=== PATIENT | male | born 1935 ===

== ENCOUNTER 2018-12-19 05:39 | Inpatient (IN) | payer MEDICARE, OTHER ==
[~2018-12-19] VITALS: Ht 172.7 cm; Wt 79.5 kg
[~2018-12-19 05:39] MED LIST: ASPI325 PO; ASPI81CH PO; ASPIRIN PO; CARV3.125 PO; CHOL10002 PO; CLARITIN10 MG PO; CLOP75 PO; COREG PO; FURO20 PO; IPRAOI INH; LATA.005SO BOTHEYES; LISI5 PO; LORA10 PO; METO5A PO; OMEP20ER PO; OMEPRAZOLE MAGN20 MG PO; POTASSIUM GLUCO90 MG PO; PRAV20 PO; TAMS.4ER PO; Vitamin C100 M1 PO
[2018-12-19 05:55] LABS: Calcium, Ionized (POC) 1.06 mmol/L (1.10-1.46); Chloride (POC) 99 mmol/L (98-108); Creatinine (POC) 1.4 mg/dL (0.8-1.3); Glucose (ISTAT POC) 193 mg/dL (70-99); Hemoglobin (POC) 13.3 g/dL (13.5-17.5); Potassium (POC) 4.4 mmol/L (3.5-5.5); Sodium (POC) 139 mmol/L (135-148); Total CO2 (POC) 22 mmol/L (21-32)
[2018-12-19] MEDS ORDERED: LEVO-T50 MCG PO (05:56)
[2018-12-19] MEDS ORDERED: B Complex #11 EACH PO (05:58)
[2018-12-19] MEDS ORDERED: LANOXIN125 MCG PO (05:59)
[2018-12-19] MEDS ORDERED: CALCIUM PO (06:00)
[2018-12-19] MEDS ORDERED: PANCRELIPASE (06:02)
[2018-12-19] MEDS ORDERED: XARELTO15 MG PO (06:02)
[2018-12-19] MEDS ORDERED: ATOR40TA PO (06:03)
[2018-12-19] MEDS ORDERED: POTCHL10ER PO (06:03)
[2018-12-19] MEDS ORDERED: FINA5 PO (06:03)
[2018-12-19] MEDS ORDERED: FURO40 PO (06:04)
[2018-12-19 06:38] LABS: BASOPHILS ABSOLUTE AUTO 0.02 K/mm3 (0.00-0.23); BASOPHILS PERCENT AUTO 0 % (0-2); EOSINOPHILS ABSOLUTE AUTO 0.01 K/mm3 (0.00-0.68); EOSINOPHILS PERCENT AUTO 0 % (0-6); Hematocrit 39.1 % (37.0-53.0); Hemoglobin 12.6 g/dL (13.5-17.5); IMMATURE GRAN ABSOLUTE AUTO 0.15 K/mm3 (0.00-0.10); IMMATURE GRAN PERCENT AUTO 1 % (0-1); LYMPHOCYTES ABSOLUTE AUTO 0.48 K/mm3 (0.84-5.20); LYMPHOCYTES PERCENT AUTO 3 % (21-46); MONOCYTES ABSOLUTE AUTO 0.97 K/mm3 (0.16-1.47); MONOCYTES PERCENT AUTO 6 % (4-13); Mean Corpuscular HGB 29.9 pg (26.0-34.0); Mean Corpuscular HGB Conc 32.2 g/dL (31.5-36.5); Mean Corpuscular Volume 93 fL (80-100); Mean Platelet Volume 12.4 fL (9.1-12.4); NEUTROPHILS ABSOLUTE AUTO 16.01 K/mm3 (1.96-9.15); NEUTROPHILS PERCENT AUTO 91 % (41-73); Platelet Count 169 K/mm3 (150-400); RDW Coefficient Variation 13.5 % (11.7-14.2); RDW Standard Deviation 45.6 fL (35.1-46.3); Red Blood Cell Count 4.22 M/mm3 (4.30-5.90); White Blood Cell Count 17.64 K/mm3 (4.00-11.30)
[2018-12-19 06:57] LABS: Alanine Aminotransfer (ALT/SGP 40 U/L (12-78); Albumin, Blood 2.5 g/dL (3.4-5.0); Albumin/Globulin Ratio 0.7 (0.8-1.8); Alk Phos 225 U/L (50-136); Anion Gap 10 mmol/L (6-16); Aspartate Aminotrans (AST/SGOT 39 U/L (12-37); Bilirubin, Total 1.3 mg/dL (0.1-1.0); Blood Urea Nitrogen 41 mg/dL (8-24); Bun/Creatinine Ratio 29.9 (12.0-20.0); CO2, Blood 24 mmol/L (21-32); Calcium, Blood 7.6 mg/dL (8.5-10.1); Chloride, Blood 105 mmol/L (98-108); Creatinine, Blood 1.37 mg/dL (0.60-1.20); Globulin, Blood 3.5 g/dL (2.2-4.0); Glomerular Filtration Rate 53 (60-); Glucose, Blood 188 mg/dL (70-99); Potassium, Blood 4.5 mmol/L (3.5-5.5); Sodium, Blood 139 mmol/L (136-145); Troponin I <0.015 ng/mL (0.000-0.040)
[2018-12-19 07:05] LABS: Digoxin (Lanoxin) 1.22 ug/mL (0.80-2.00)
--- NOTE | 2018-12-19 12:29 | NUR ---
PATIENT GAVE STUDENT NURSE PERMISSION TO CARE FOR THEM ON 12/20/18.
[2018-12-19 13:48] LABS: Source, Urine Clean Catch
[2018-12-19 14:05] LABS: Bilirubin, Urine Neg (Neg); Blood, Urine Neg (Neg); Glucose Qualitative, Urine Neg (Neg); Ketones, Urine Neg (Neg); Leukocyte Esterase, Urine 1+ (Neg); Nitrite, Urine Neg (Neg); Protein, Urine Neg (Neg); Specific Gravity, Urine 1.015 (1.003-1.022); Urobilinogen, Urine NORM (Normal)
[2018-12-19 14:21] LABS: Appearance, Urine Clear (Clear); Color, Urine Yellow (P-Yellow); Hyaline Casts 0-2 /lpf (0-2)
[2018-12-19 14:22] LABS: Bacteria Few /hpf; Red Blood Cells, Urine 0-2 /hpf (0-2); Squamous Epithelial Cells Few /hpf (Few)
--- NOTE | 2018-12-19 16:03 | NUR ---
PT GAVE THIS STUDENT VERBAL PERMISSION TO ADMINISTER MEDICATIONS ON 12/19/18
--- NOTE | 2018-12-19 16:16 | NUR ---
1030 PT ADMITTED TO MEDICAL FLOOR VIA GURNEY. PT TRANSFERED TO BED WITH SLIDER SHEET AND 3 STAFF. PT ADMITTED WITH SYNCOPE, RECIEVED 500ML BOLUS IN ER, 1L BOLUS INITIATED POST ADMISSION. PT TOLERATED BOLUS WITHOUT ISSUE. URINE AND STOOL SAMPLE SENT TO LAB. PT DENIES PAIN, SOB, N/V. PT WITH GOOD MEAL INTAKE AT LUNCH. SON AT BEDSIDE AT TIME OF ADMISSION AND AT THIS TIME. NO NEW CHANGES AT THIS TIME.
--- NOTE | 2018-12-19 16:20 | NUR ---
SPOKE WITH [facility] NURSE AT [facility], SHE REPORTS THAT PT HAS NO RECORD OF FLU VACCINE THIS YEAR AND REQUESTS THAT FOLLOW APPOINTMENT INFORMATION BE PLACED IN DISHCARGE PAPERWORK. APPOINTMENT INFO INPUTED. FLU VACCINE GIVEN BY STUDENT NURSE.
--- NOTE | 2018-12-19 21:03 | NUR ---
12/19/182054 INFORMED DR MIRANDA OF POSITIVE BLOOD CULTURES PER LAD TECH. STATES HE WILL CHECK CHART AND WRITE ORDERS.
[2018-12-20 04:59] LABS: BASOPHILS ABSOLUTE AUTO 0.02 K/mm3 (0.00-0.23); BASOPHILS PERCENT AUTO 0 % (0-2); EOSINOPHILS ABSOLUTE AUTO 0.12 K/mm3 (0.00-0.68); EOSINOPHILS PERCENT AUTO 1 % (0-6); Hemoglobin 11.6 g/dL (13.5-17.5); IMMATURE GRAN ABSOLUTE AUTO 0.05 K/mm3 (0.00-0.10); IMMATURE GRAN PERCENT AUTO 1 % (0-1); LYMPHOCYTES ABSOLUTE AUTO 1.35 K/mm3 (0.84-5.20); LYMPHOCYTES PERCENT AUTO 14 % (21-46); MONOCYTES ABSOLUTE AUTO 1.11 K/mm3 (0.16-1.47); MONOCYTES PERCENT AUTO 12 % (4-13); Mean Corpuscular HGB 29.4 pg (26.0-34.0); Mean Corpuscular HGB Conc 31.4 g/dL (31.5-36.5); Mean Corpuscular Volume 94 fL (80-100); Mean Platelet Volume 12.9 fL (9.1-12.4); NEUTROPHILS ABSOLUTE AUTO 6.94 K/mm3 (1.96-9.15); NEUTROPHILS PERCENT AUTO 72 % (41-73); Platelet Count 126 K/mm3 (150-400); RDW Coefficient Variation 13.7 % (11.7-14.2); RDW Standard Deviation 46.8 fL (35.1-46.3); Red Blood Cell Count 3.95 M/mm3 (4.30-5.90); White Blood Cell Count 9.59 K/mm3 (4.00-11.30)
[2018-12-20 05:18] LABS: Anion Gap 9 mmol/L (6-16); Blood Urea Nitrogen 25 mg/dL (8-24); Bun/Creatinine Ratio 27.7 (12.0-20.0); CO2, Blood 22 mmol/L (21-32); Calcium, Blood 7.6 mg/dL (8.5-10.1); Chloride, Blood 110 mmol/L (98-108); Glomerular Filtration Rate >60 (60-); Glucose, Blood 84 mg/dL (70-99); Sodium, Blood 141 mmol/L (136-145)
--- NOTE | 2018-12-20 07:34 | NUR ---
12/20/18 0630 AWAKENED FOR AM MEDS. DENIES ANY PAIN. VITALS STABLE.DENIES ANY DIZZINESS OR OTHER S/S. UP TO BEDSIDE FOR QS VOIDINGS.
[2018-12-20 14:00] LABS: Stool Occult Bld Immuno 1 Positive (NEGATIVE)
--- NOTE | 2018-12-20 17:26 | NUR ---
SHIFT SUMMARY PT WORKED WITH PHYSICAL THERAPY AND OCCUPATIONAL THERAPY THIS SHIFT. PT TOOK A SHOWER. NO COMPLAINTS OF DIZZINESS WHILE STANDING AND WALKING. NO COMPLAINTS OF PAIN THIS SHIFT. PT DID HAVE AN EPISODE THIS AM WHEN HEART RATE WAS 150. SCHEDULED DIGOXIN GIVEN AND HR DECREASED. DR. RHODES WAS NOTIFIED OF THIS. PT POSSIBLY DID NOT RECEIVE HIS DIGOXIN THE DAY BEFORE. HR RATE HAS BEEN IN HIGH 90'S LOW 100'S THE REST OF THE SHIFT. NO ACUTE CHANGES THIS SHIFT. CALL LIGHT IN REACH. WILL CONTINUE TO MONITOR AND REPORT TO ONCOMING RN.
--- NOTE | 2018-12-21 05:00 | NUR ---
SHIFT SUMMARY: PT IS ALERT AND ORIENTED. PT IS CALM AND COOPERATIVE WITH CARE. PT CALLS APPROPRIATELY. PT IS A STANDBY ASSIST TO THE BATHROOM. PT'S IV LEAKING, NEW 22 G PUT INTO R. FOREARM, PT TOLERATED WELL. PT DENIES PAIN, NAUSEA, VOMITING, AND SOB. PT SLEPT MUCH OF THE NIGHT WHEN NOT DISTURBED. NO ACUTE CHANGES OR COMPLICATIONS THIS SHIFT. BED IN LOW POSITION, CALL LIGHT WITHIN REACH. WILL REPORT TO DAY NURSE.
[2018-12-21 05:21] LABS: Hematocrit 35.3 % (37.0-53.0); Hemoglobin 11.3 g/dL (13.5-17.5); Mean Corpuscular HGB 29.1 pg (26.0-34.0); Mean Corpuscular Volume 91 fL (80-100); Mean Platelet Volume 12.1 fL (9.1-12.4); Platelet Count 126 K/mm3 (150-400); RDW Coefficient Variation 13.7 % (11.7-14.2); RDW Standard Deviation 45.7 fL (35.1-46.3); Red Blood Cell Count 3.88 M/mm3 (4.30-5.90); White Blood Cell Count 7.27 K/mm3 (4.00-11.30)
[2018-12-21 05:48] LABS: Anion Gap 8 mmol/L (6-16); Blood Urea Nitrogen 18 mg/dL (8-24); Bun/Creatinine Ratio 22.1 (12.0-20.0); CO2, Blood 25 mmol/L (21-32); Calcium, Blood 7.7 mg/dL (8.5-10.1); Chloride, Blood 109 mmol/L (98-108); Creatinine, Blood 0.81 mg/dL (0.60-1.20); Glomerular Filtration Rate >60 (60-); Glucose, Blood 95 mg/dL (70-99); Potassium, Blood 4.1 mmol/L (3.5-5.5); Sodium, Blood 142 mmol/L (136-145)
[2018-12-21 13:40] LABS: Albumin, Blood 2.3 g/dL (3.4-5.0); Albumin/Globulin Ratio 0.7 (0.8-1.8); Bilirubin, Direct 0.2 mg/dL (0.0-0.3); Bilirubin, Indirect 0.2 mg/dL (0.1-0.7); Bilirubin, Total 0.4 mg/dL (0.1-1.0); Globulin, Blood 3.4 g/dL (2.2-4.0); Total Protein, Blood 5.7 g/dL (6.4-8.2)
--- NOTE | 2018-12-21 19:08 | NUR ---
SHIFT SUMMARY PT HAS HAD NO COMPLAINTS THIS SHIFT. PT WORKED WITH PHYSICAL THERAPY TODAY. PT UP TO CHAIR FOR LUNCH. THIS RN ENCOURAGED PT TO GET UP FOR ALL MEALS. CT OF ABDOMEN THIS EVENING AND DR. HRODES IS GOING TO TALK WITH PT. NO ACUTE CHANGES THIS SHIFT. CALL LIGHT IN REACH. WILL CONTINUE TO MONITOR. REPORT GIVEN TO VY DAVID.
--- NOTE | 2018-12-22 05:31 | NUR ---
SHIFT SUMMARY: PT IS ALERT AND ORIENTED. PT IS CALM AND COOPERATIVE WITH CARE. PT CALLS APPROPRIATELY. PT IS A STANDBY ASSIST TO THE BATHROOM. GI CONSULT CALLED TO ANSWERING SERVICE. PT DENIES PAIN, NAUSEA, VOMITING, AND SOB. PT SLEPT MUCH OF THE NIGHT WHEN NOT DISTURBED. NO ACUTE CHANGES OR COMPLICATIONS THIS SHIFT. BED IN LOW POSITION, CALL LIGHT WITHIN REACH. WILL REPORT TO DAY NURSE.
[2018-12-22] MEDS ORDERED: CEFP200 PO (15:25)
--- NOTE | 2018-12-22 15:43 | NUR ---
SUMMARY/DISCHARGE PT DISCHARGED TO HOME, PT AND SPOUSE VERBALIZED UNDERSTANDING OF DISCHARGE INSTRUCTIONS REGARDING MEDICATIONS AND FOLLOW UP APPOINTMENTS, PT ABLE TO BE TAKEN OUT SAFELY VIA WHEELCHAIR
== END 2018-12-22 15:42 | disposition home or self-care (01) | DRG 872 ==
LOC: ER 05:39 → MEDS 05:40 → ENPENDDIS 12-22 15:16 → MEDS 12-22 15:42
PROVIDERS: Emergency Medicine; Internal Medicine Infectious Disease; ADMIT Internal Medicine
DX: A41.51 Sepsis due to Escherichia coli [E. coli] (principal); K83.09 Other cholangitis; N17.9 Acute kidney failure, unspecified; K92.1 Melena; R65.20 Severe sepsis without septic shock; I10 Essential (primary) hypertension; I25.10 Atherosclerotic heart disease of native coronary artery without angina pectoris; I48.2 Chronic atrial fibrillation; Z85.07 Personal history of malignant neoplasm of pancreas; Z23 Encounter for immunization; N40.1 Benign prostatic hyperplasia with lower urinary tract symptoms; Z95.5 Presence of coronary angioplasty implant and graft; I25.2 Old myocardial infarction; J44.9 Chronic obstructive pulmonary disease, unspecified; Z87.891 Personal history of nicotine dependence; Z66 Do not resuscitate; E86.0 Dehydration; I34.0 Nonrheumatic mitral (valve) insufficiency
CPT/HCPCS: 36415; 71046; 74177; 80047; 80048; 80053; 80076; 80162; 81001; 82274; 83605; 84484; 85014; 85025; 85027; 87040; 87077; 87086; 87186; 90686; 93005; 93010; 93306; 96360; 97116; 97161; 97165; 97530; 99285-25; G0008; G0378; J0696; J3480; J7030; J7050; Q9967

== ENCOUNTER 2020-07-12 12:39 | Inpatient (IN) | payer OTHER, MEDICARE ==
[~2020-07-12] VITALS: Ht 172.7 cm; Wt 79.9 kg
[~2020-07-12 12:39] MED LIST changes: +B Complex #11 EACH PO; +CALCIUM PO; +CEFP200 PO; +FINA5 PO; +FURO40 PO; +LANOXIN125 MCG PO; +LEVO-T50 MCG PO; +PANCRELIPASE; +POTCHL10ER PO; +XARELTO15 MG PO
[2020-07-12 13:11] LABS: BASOPHILS ABSOLUTE AUTO 0.04 K/mm3 (0.00-0.23); BASOPHILS PERCENT AUTO 0 % (0-2); EOSINOPHILS ABSOLUTE AUTO 0.06 K/mm3 (0.00-0.68); EOSINOPHILS PERCENT AUTO 0 % (0-6); Hematocrit 41.5 % (37.0-53.0); Hemoglobin 13.3 g/dL (13.5-17.5); IMMATURE GRAN PERCENT AUTO 1 % (0-1); LYMPHOCYTES ABSOLUTE AUTO 2.09 K/mm3 (0.84-5.20); LYMPHOCYTES PERCENT AUTO 10 % (21-46); MONOCYTES PERCENT AUTO 7 % (4-13); Mean Corpuscular HGB 29.8 pg (26.0-34.0); Mean Corpuscular Volume 93 fL (80-100); Mean Platelet Volume 12.7 fL (9.1-12.4); NEUTROPHILS ABSOLUTE AUTO 17.12 K/mm3 (1.96-9.15); NEUTROPHILS PERCENT AUTO 82 % (41-73); Platelet Count 281 K/mm3 (150-400); RDW Standard Deviation 43.8 fL (35.1-46.3); Red Blood Cell Count 4.47 M/mm3 (4.30-5.90); White Blood Cell Count 20.91 K/mm3 (4.00-11.30)
[2020-07-12 13:31] LABS: Alanine Aminotransfer (ALT/SGP 27 U/L (12-78); Albumin, Blood 2.8 g/dL (3.4-5.0); Albumin/Globulin Ratio 0.8 (0.8-1.8); Alk Phos 228 U/L (50-136); Anion Gap 8 mmol/L (6-16); Aspartate Aminotrans (AST/SGOT 24 U/L (12-37); Bilirubin, Total 1.4 mg/dL (0.1-1.0); Blood Urea Nitrogen 18 mg/dL (8-24); Bun/Creatinine Ratio 18.1 (12.0-20.0); CO2, Blood 24 mmol/L (21-32); Calcium, Blood 8.1 mg/dL (8.5-10.1); Chloride, Blood 106 mmol/L (98-108); Creatinine, Blood 0.99 mg/dL (0.60-1.20); Globulin, Blood 3.6 g/dL (2.2-4.0); Glomerular Filtration Rate >60 (60-); Glucose, Blood 192 mg/dL (70-99); Potassium, Blood 4.4 mmol/L (3.5-5.5); Sodium, Blood 138 mmol/L (136-145); Total Protein, Blood 6.4 g/dL (6.4-8.2)
[2020-07-12] MEDS ORDERED: PANT40 PO (13:32)
[2020-07-12] MEDS ORDERED: ERGO400 PO (13:41)
[2020-07-12] MEDS ORDERED: FINA5 PO (13:41)
[2020-07-12] MEDS ORDERED: Loratadine10 MG PO (13:41)
[2020-07-12] MEDS ORDERED: ZENPEP DR 10,01 EACH PO (13:41)
[2020-07-12] MEDS ORDERED: Aspir 8181 MG PO (13:41)
[2020-07-12] MEDS ORDERED: METF500C PO (13:42)
[2020-07-12] MEDS ORDERED: LEVSOD75 PO (13:42)
[2020-07-12] MEDS ORDERED: ELIQUIS5 MG PO (13:42)
[2020-07-12] MEDS ORDERED: ATOR40TA PO (13:42)
[2020-07-12] MEDS ORDERED: FURO20 PO (15:29)
[2020-07-12 15:56] LABS: Source, Urine Catheter
[2020-07-12 15:59] LABS: Bilirubin, Urine Neg (Neg); Blood, Urine Neg (Neg); Glucose Qualitative, Urine Neg (Neg); Ketones, Urine 1+ (Neg); Leukocyte Esterase, Urine Neg (Neg); Nitrite, Urine Neg (Neg); Protein, Urine Neg (Neg); Urobilinogen, Urine 2+ (Normal)
[2020-07-12 16:00] LABS: Appearance, Urine Clear (Clear); Color, Urine Yellow (P-Yellow)
[2020-07-12 17:34] LABS: Influenza A Negative (NEGATIVE); Influenza B Negative (NEGATIVE)
[2020-07-12 22:34] LABS: Adenovirus Not Detected (NOT DETECT); Bordetella pertussis Not Detected (NOT DETECT); Chlamydophila pneumoniae Not Detected (NOT DETECT); Coronavirus 229E Not Detected (NOT DETECT); Coronavirus HKU1 Not Detected (NOT DETECT); Coronavirus NL63 Not Detected (NOT DETECT); Coronavirus OC43 Not Detected (NOT DETECT); Human Metapneumovirus Not Detected (NOT DETECT); Human Rhinovirus/Enterovirus Not Detected (NOT DETECT); Influenza A/2009-H1 Not Detected (NOT DETECT); Influenza A/H1 Not Detected (NOT DETECT); Influenza A/H3 Not Detected (NOT DETECT); Influenza B Not Detected (NOT DETECT); Mycoplasma pneumoniae Not Detected (NOT DETECT); Parainfluenza Virus 1 Not Detected (NOT DETECT); Parainfluenza Virus 2 Not Detected (NOT DETECT); Parainfluenza Virus 3 Not Detected (NOT DETECT); Parainfluenza Virus 4 Not Detected (NOT DETECT); Respiratory Syncytial Virus Not Detected (NOT DETECT)
[2020-07-13 04:22] LABS: BASOPHILS ABSOLUTE AUTO 0.03 K/mm3 (0.00-0.23); BASOPHILS PERCENT AUTO 0 % (0-2); EOSINOPHILS ABSOLUTE AUTO 0.01 K/mm3 (0.00-0.68); EOSINOPHILS PERCENT AUTO 0 % (0-6); Hematocrit 38.1 % (37.0-53.0); Hemoglobin 11.8 g/dL (13.5-17.5); IMMATURE GRAN ABSOLUTE AUTO 0.13 K/mm3 (0.00-0.10); IMMATURE GRAN PERCENT AUTO 1 % (0-1); LYMPHOCYTES ABSOLUTE AUTO 1.67 K/mm3 (0.84-5.20); LYMPHOCYTES PERCENT AUTO 9 % (21-46); MONOCYTES ABSOLUTE AUTO 2.03 K/mm3 (0.16-1.47); MONOCYTES PERCENT AUTO 11 % (4-13); Mean Corpuscular HGB 29.8 pg (26.0-34.0); Mean Corpuscular Volume 96 fL (80-100); Mean Platelet Volume 12.7 fL (9.1-12.4); NEUTROPHILS ABSOLUTE AUTO 14.89 K/mm3 (1.96-9.15); NEUTROPHILS PERCENT AUTO 79 % (41-73); Platelet Count 218 K/mm3 (150-400); RDW Coefficient Variation 13.2 % (11.7-14.2); RDW Standard Deviation 46.5 fL (35.1-46.3); Red Blood Cell Count 3.96 M/mm3 (4.30-5.90); White Blood Cell Count 18.76 K/mm3 (4.00-11.30)
[2020-07-13 04:46] LABS: Alanine Aminotransfer (ALT/SGP 25 U/L (12-78); Albumin, Blood 2.4 g/dL (3.4-5.0); Albumin/Globulin Ratio 0.6 (0.8-1.8); Alk Phos 197 U/L (50-136); Anion Gap 5 mmol/L (6-16); Aspartate Aminotrans (AST/SGOT 16 U/L (12-37); Bilirubin, Total 0.9 mg/dL (0.1-1.0); Blood Urea Nitrogen 17 mg/dL (8-24); Bun/Creatinine Ratio 17.1 (12.0-20.0); CO2, Blood 28 mmol/L (21-32); Calcium, Blood 8.1 mg/dL (8.5-10.1); Chloride, Blood 106 mmol/L (98-108); Creatinine, Blood 0.99 mg/dL (0.60-1.20); Globulin, Blood 3.7 g/dL (2.2-4.0); Glomerular Filtration Rate >60 (60-); Glucose, Blood 124 mg/dL (70-99); Potassium, Blood 4.2 mmol/L (3.5-5.5); Sodium, Blood 139 mmol/L (136-145); Total Protein, Blood 6.1 g/dL (6.4-8.2); Troponin I 0.019 ng/mL (0.000-0.040)
--- NOTE | 2020-07-13 10:23 | NUR ---
ASSUMED CARE; PT MORE ALERT THIS AM, ABLE TO STATE FULL NAME AND KNOWS WHERE HE'S AT, WAS ACTUALLY ASKING FOR BREAKFAST THIS MORNING AND THAT HE WAS HUNGRY, ALSO STATED HE COULDNT REMEMBER WHAT HAPPENED YESTERDAY AND HOW HE GOT HERE. PT'S DIET RESUMED NO ISSUES WITH SWALLOWING. PT ALSO ACCIDENTALLY PULLED IV LINE OUT UPON TURNING IN BED. VITALS HRR AFIB WAS AT 120'S-170'S THIS AM AVERAGING AT 130 PER JIRA DEVELOPER, CALLED DR WHEELER AND MADE AWARE ORDER RECEIVED FOR METOPROLOL 25MG Q8HRS FIRST DOSE WAS GIVEN AT 0900 RATE IS NOW AT 80-90'S. BP SYSTOLIC 130'S, SATS ABOVE 95% ON 2L OF O2, AFEBRILE. PT IS CURRENTLY EATING BREAKFAST ICU NURSE IN THE ROOM TO RESTART AN IV. WILL MONITOR
--- NOTE | 2020-07-13 18:48 | NUR ---
PT SUMMARY: PT REMAINED ALERT AT BASELINE THROUGHOUT THE SHIFT, VITALS HRR STILL AFIB 90'S-130'S ON PO METOPROLOL, SATS ABOVE 98% ON RROMAIR, AFEBRILE. PT WAS BLADDER SCANNED UNABLE TO VOID FOR THE SHIFT, OBTAINED 597MLS FROM BLADDER SCAN, STRAIGHT CATH PER ORDER [address] OUT. ATT[address] IN PLACE. CONTINUES ON IV ABO, COVID PENDING. GOOD APPETTITE. CALL LIGHTS IN REACH WILL REPORT TO ONCOMING SHIFT
[2020-07-14 04:24] LABS: BASOPHILS ABSOLUTE AUTO 0.02 K/mm3 (0.00-0.23); BASOPHILS PERCENT AUTO 0 % (0-2); EOSINOPHILS ABSOLUTE AUTO 0.02 K/mm3 (0.00-0.68); EOSINOPHILS PERCENT AUTO 0 % (0-6); Hematocrit 36.6 % (37.0-53.0); Hemoglobin 11.6 g/dL (13.5-17.5); IMMATURE GRAN PERCENT AUTO 1 % (0-1); LYMPHOCYTES ABSOLUTE AUTO 1.98 K/mm3 (0.84-5.20); LYMPHOCYTES PERCENT AUTO 14 % (21-46); MONOCYTES ABSOLUTE AUTO 1.95 K/mm3 (0.16-1.47); MONOCYTES PERCENT AUTO 14 % (4-13); Mean Corpuscular HGB 30.2 pg (26.0-34.0); Mean Corpuscular HGB Conc 31.7 g/dL (31.5-36.5); Mean Corpuscular Volume 95 fL (80-100); NEUTROPHILS ABSOLUTE AUTO 10.28 K/mm3 (1.96-9.15); NEUTROPHILS PERCENT AUTO 72 % (41-73); Platelet Count 214 K/mm3 (150-400); RDW Coefficient Variation 13.2 % (11.7-14.2); RDW Standard Deviation 45.8 fL (35.1-46.3); Red Blood Cell Count 3.84 M/mm3 (4.30-5.90); White Blood Cell Count 14.35 K/mm3 (4.00-11.30)
[2020-07-14 04:40] LABS: Anion Gap 5 mmol/L (6-16); Blood Urea Nitrogen 22 mg/dL (8-24); Bun/Creatinine Ratio 25.8 (12.0-20.0); CO2, Blood 27 mmol/L (21-32); Calcium, Blood 8.3 mg/dL (8.5-10.1); Chloride, Blood 104 mmol/L (98-108); Creatinine, Blood 0.85 mg/dL (0.60-1.20); Glomerular Filtration Rate >60 (60-); Glucose, Blood 130 mg/dL (70-99); Potassium, Blood 4.5 mmol/L (3.5-5.5); Sodium, Blood 136 mmol/L (136-145)
--- NOTE | 2020-07-14 05:17 | NUR ---
PATIENT RESTING IN BED. HE IS CONFUSED TO SITUATION AND DATE. DURING THE NIGHT HE IS MORE CONFUSED TO SITUATION, ATTEMPTING TO GET UP. PATIENT STATES "I NEED TO GO EMPTY MY SHOTGUN." HE ATTEMPTS TO CLIMB OUT OF BED. BED ALARM ON, EDUCATED ON THE USE OF CALL LIGHT FOR ASSISTANCE, UNABLE TO DEMONSTRATE UNDERSTANDING. PATIENT STRAIGHT CATHED AT 0400. 525 ML OUT. VSS, WILL CONTINUE TO MONITOR UNTIL END OF SHIFT
--- NOTE | 2020-07-14 09:36 | NUR ---
ASSUME CARE: PT ALERT AT BASELINE. VITALS HRR AFIB STABLE ON THE 90'S, DENIES CHEST PAIN, ON ROOMAIR SATING ABOVE 95%, AFEBRILE. CONTINUES ON IV ABO, COVID PENDING. NO OTHER ISSUES/ACUTE CHANGE, WILL MONITOR
--- NOTE | 2020-07-14 14:57 | NUR ---
PT HAD UNWITNESSED FALL @1340. THIS CN CHECKED ON PT ON THE DOOR FOR BLADDER SCAN PROCEDURE PT WAS ALREADY STANDIGN UP ON THE SIDE OF THE BED, PT WAS TOLD TO WAIT FOR HELP AND SIT BACK IN BED, WHILE THIS RN AND HEARING DOG TRAINER WEARING PPE'S SINCE PT IS IN ISO ROOM A BANG NOISE HEARD FROM PT'S BATHROOM, PT WAS FOUND ON THE BATHROOM FLOOR SITTING WITH NO BRIEF ON AND STOOLS ON THE FLOOR. PT STATED HE LOST BALANCE FELL ON HIS KNEES HIT HIS FOREHEAD ON THE BATHROOM WALL. NO HEMATOMA/BUMPS OR BRUISING NOTED ON THE HEAD, NEURO CHECKS DONE WNL. PT WAS ASSISTED BACK TO THE TOILET VIA GAIT BELT AND WALKER 2 PA, EVENTUALLY ASSISTED BACK TO BED, VITALS STABLE. DR WHEELER MADE AWARE TO MONITOR PT NUERO CHECKS IF THERE'S ANY CHANGES CALL PROVIDER FOR HEAD CT. SIGNIFICANT OTHER LILO MADE AWARE WELL. WILL MONITOR
--- NOTE | 2020-07-14 15:14 | NUR ---
ECHOCARDIOGRAM COMPLETE
[2020-07-15 03:50] LABS: BASOPHILS ABSOLUTE AUTO 0.04 K/mm3 (0.00-0.23); BASOPHILS PERCENT AUTO 0 % (0-2); EOSINOPHILS ABSOLUTE AUTO 0.04 K/mm3 (0.00-0.68); EOSINOPHILS PERCENT AUTO 0 % (0-6); Hematocrit 37.7 % (37.0-53.0); IMMATURE GRAN ABSOLUTE AUTO 0.13 K/mm3 (0.00-0.10); IMMATURE GRAN PERCENT AUTO 1 % (0-1); LYMPHOCYTES ABSOLUTE AUTO 2.22 K/mm3 (0.84-5.20); LYMPHOCYTES PERCENT AUTO 17 % (21-46); MONOCYTES PERCENT AUTO 15 % (4-13); Mean Corpuscular HGB 30.2 pg (26.0-34.0); Mean Corpuscular HGB Conc 31.8 g/dL (31.5-36.5); Mean Corpuscular Volume 95 fL (80-100); Mean Platelet Volume 12.6 fL (9.1-12.4); NEUTROPHILS ABSOLUTE AUTO 8.45 K/mm3 (1.96-9.15); NEUTROPHILS PERCENT AUTO 66 % (41-73); Platelet Count 233 K/mm3 (150-400); RDW Coefficient Variation 13.2 % (11.7-14.2); RDW Standard Deviation 45.8 fL (35.1-46.3); Red Blood Cell Count 3.97 M/mm3 (4.30-5.90); White Blood Cell Count 12.78 K/mm3 (4.00-11.30)
--- NOTE | 2020-07-15 05:42 | NUR ---
SHIFT SUMMARY PT REMAINED IN DROPLET ISOLATION, COVID TEST STILL PENDING. PT ALERT AND ORIENTED TO SELF, SURROUNDINGS AND TIME AT BEGINNING OF SHIFT. PT BEGAN TO HALLUCINATE AND BELIEVED TO HAVE SEEN "SPIDERS" ON THE [place]. PT ALSO WAS UNAWARE OF CURRENT LOCATION AT 0300. PT O2 SAT ABOVE 95% WHILE ON RA. VS STABLE. PT REPORTS NO CP OR PRESSURE. AT 2230 PT WAS BLADDER SCANNED AND HAD 308 ML OF URINE IN BLADDER. AT 0330 PT VOIDED 25 ML OF URINE. BLADDER SCAN WAS DONE, 411 ML OF URINE IN BLADDER. WILL CONTINUE TO MONITOR UNTIL SHIFT REPORT GIVEN TO DAY SHIFT RN.
--- NOTE | 2020-07-15 06:30 | NUR ---
STRAIGHT CATHETER INSERTED STRAIGHT CATHETER INSERTED D/T PROTOCOL. BLADDER SCANNER REVEALED 475 ML OF URINE. STRAIGHT CATHETER PROCEDURE PERFORMED. STERILE TECHNIQUE MAINTAINED. 525 ML OF URINE REMOVED. PT TOLERATED WELL.
--- NOTE | 2020-07-15 18:47 | NUR ---
PCU DAYSHIFT SUMMARY PATIENT ALERT TO SELF - CONFUSED TO LOCATION AND SITUATION. PATIENT SLEEPING T/O SHIFT. ENCOURAGED UP TO CHAIR X2 THIS SHIFT - TOLERATED PASSIVELY. RESP E/U ON ROOM AIR. PATIENT VOIDED 600ML APPROX THIS SHIFT POST BLADDER SCAN AT 1400 APPROX - NO OTHER URINE NOTED. HEART RATE REMAINS AFIB IRREGULAR WITH CONTROLLED RATE - PATIENT NOW MEDICAL STATUS NO TELE. PT/OT WORKED WITH PATIENT. LEFT KNEE NOTED TO BE SWOLLEN AND RED - XRAY OBTAINED OF KNEE THIS SHIFT. NO FEVER OR CHEST PAIN NOTED THIS SHIFT. PATIENT REMAINED ON ROOM AIR. VSS. NO ACUTE CHANGES NOTED. WILL CONTINUE TO MONITOR AND REPORT TO NOC SHIFT RN. BED ALARM DATA ENTRY OPERATOR LIGHT W/I REACH - PLAN FOR HOME WITH HOME HEALTH OR HOSPICE WITH SIGNIFICANT OTHER LILO.
[2020-07-16 04:06] LABS: BASOPHILS ABSOLUTE AUTO 0.02 K/mm3 (0.00-0.23); BASOPHILS PERCENT AUTO 0 % (0-2); EOSINOPHILS ABSOLUTE AUTO 0.06 K/mm3 (0.00-0.68); EOSINOPHILS PERCENT AUTO 1 % (0-6); Hematocrit 34.6 % (37.0-53.0); Hemoglobin 11.1 g/dL (13.5-17.5); IMMATURE GRAN ABSOLUTE AUTO 0.13 K/mm3 (0.00-0.10); IMMATURE GRAN PERCENT AUTO 1 % (0-1); LYMPHOCYTES ABSOLUTE AUTO 2.13 K/mm3 (0.84-5.20); LYMPHOCYTES PERCENT AUTO 18 % (21-46); MONOCYTES ABSOLUTE AUTO 2.27 K/mm3 (0.16-1.47); MONOCYTES PERCENT AUTO 19 % (4-13); Mean Corpuscular HGB 29.8 pg (26.0-34.0); Mean Corpuscular HGB Conc 32.1 g/dL (31.5-36.5); Mean Corpuscular Volume 93 fL (80-100); Mean Platelet Volume 12.8 fL (9.1-12.4); NEUTROPHILS ABSOLUTE AUTO 7.27 K/mm3 (1.96-9.15); NEUTROPHILS PERCENT AUTO 61 % (41-73); Platelet Count 206 K/mm3 (150-400); RDW Coefficient Variation 13.2 % (11.7-14.2); RDW Standard Deviation 44.5 fL (35.1-46.3); Red Blood Cell Count 3.73 M/mm3 (4.30-5.90); White Blood Cell Count 11.88 K/mm3 (4.00-11.30)
[2020-07-16 04:32] LABS: Anion Gap 4 mmol/L (6-16); Blood Urea Nitrogen 18 mg/dL (8-24); Bun/Creatinine Ratio 20.9 (12.0-20.0); CO2, Blood 29 mmol/L (21-32); Calcium, Blood 8.1 mg/dL (8.5-10.1); Chloride, Blood 100 mmol/L (98-108); Creatinine, Blood 0.86 mg/dL (0.60-1.20); Glomerular Filtration Rate >60 (60-); Glucose, Blood 118 mg/dL (70-99); Sodium, Blood 133 mmol/L (136-145)
--- NOTE | 2020-07-16 05:44 | NUR ---
SHIFT SUMMARY PT A& X2; VSS; DENIES CHEST PAIN; CURRENTLY MED STATUS NO TELE; O2 SATS >93 ON RA; DENIES SOB; PT ENCOURAGED TO USE URINAL T/O SHIFT; BLADDER SCAN PERFORMED W/ 280ML NOTED; PO FLUIDS ENCOURAGED; PT EDUCATED ON FALL PREVENTION; SKID FREE SOCKS IN PLACE; BATHROOM LIGHT ON; BED ALARM ON; CONTINUE AWAITING RESULTS FOR SEND OUT COVID R/O; PT SLEPT SEVERAL HOURS IN BETWEEN INTERVENTIONS; CALL LIGHT IN REACH; BED IN LOWEST POSITION; WILL CONTINUE TO MONITOR CLOSELY UNTIL HAND OFF TO DAY SHIFT RN.
--- NOTE | 2020-07-16 10:16 | NUR ---
ASSUMED CARE OF PT AT 0700, REPORT FROM FRANKIE REAL. PT RESTING IN BED, SUPINE IN SEMI-BROWN'S, RESPIRATIONS EVEN AND UNLABORED ON ROOM AIR.
--- NOTE | 2020-07-16 15:50 | NUR ---
Spiritaul care visit conducted. Patient is lying in bed and alert. 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 Patient shares about his spiritual journey ([employer] to [facility] [employer] Mandaeism) and about his struggles to forgive. I listen empathically, hear confession, reinforce helpful attitudes and practices and provide pastoral clinical counselor and prayer. Patient responds well and shows signs of catharsis and increased peace. I will continue to remain available to patient and family.
--- NOTE | 2020-07-16 18:44 | NUR ---
SHIFT SUMMARY: PT SLEEPS THROUGHOUT SHIFT BUT AROUSES EASILY TO GIRLFRIEND VISITING AND TO STAFF ENTERING ROOM. PT HAS BEEN A/O X3, SATS ON ROOM AIR, HAS BEEN AFEBRILE. COVID TEST IS NEGATIVE, ISOLATION DC'D. PT CONTINUES MED STATUS WITH NO TELEMETRY. PT WAS ABLE TO SELF CATH FOR URINE AT 1015 TODAY AND AGAIN AT 1845. PT WAS VISITED BY SPIRITUAL CARE AND PHYSICAL THERAPY, WAS ABLE TO SIT AT BEDSIDE, NO AMBULATION.
--- NOTE | 2020-07-16 20:50 | NUR ---
ASSUMED CARE OF PATIENT AT [facility] 1904 FROM JOSE Yung RN AND NEL Andersen RN. PATIENT ALERT AND ORIENTED TO SELF, AND DATE; REPORTS HE MEMORIZED THE DATE TODAY. PATIENT DENIES PAIN, NUMBNESS, TINGLING, DIZZINESS OR NAUSEA. MEDICAL NO TELE; OXYGEN SATURATION ABOVE 90% ON ROOM AIR. PIV S/L. PATIENT MAX ASSISTANCE OUT OF BED; FALL RISK; TURNS SELF IN BED. Q8H BLADDER SCANS; SELF CATHS W/ ASSISTANCE. PATIENT CURRENTLY RESTING IN BED; CALL LIGHT IN REACH; BED IN LOWEST POSISTION; BED ALARM ON; WILL CONTINUE TO MONITOR AND ASSESS UNTIL END OF SHIFT.
[2020-07-17 03:59] LABS: BASOPHILS ABSOLUTE AUTO 0.04 K/mm3 (0.00-0.23); BASOPHILS PERCENT AUTO 0 % (0-2); EOSINOPHILS ABSOLUTE AUTO 0.07 K/mm3 (0.00-0.68); EOSINOPHILS PERCENT AUTO 1 % (0-6); Hematocrit 35.7 % (37.0-53.0); Hemoglobin 11.4 g/dL (13.5-17.5); IMMATURE GRAN ABSOLUTE AUTO 0.15 K/mm3 (0.00-0.10); IMMATURE GRAN PERCENT AUTO 1 % (0-1); LYMPHOCYTES ABSOLUTE AUTO 2.08 K/mm3 (0.84-5.20); LYMPHOCYTES PERCENT AUTO 19 % (21-46); MONOCYTES ABSOLUTE AUTO 2.08 K/mm3 (0.16-1.47); MONOCYTES PERCENT AUTO 19 % (4-13); Mean Corpuscular HGB 29.8 pg (26.0-34.0); Mean Corpuscular HGB Conc 31.9 g/dL (31.5-36.5); Mean Corpuscular Volume 93 fL (80-100); Mean Platelet Volume 12.6 fL (9.1-12.4); NEUTROPHILS ABSOLUTE AUTO 6.61 K/mm3 (1.96-9.15); NEUTROPHILS PERCENT AUTO 60 % (41-73); Platelet Count 209 K/mm3 (150-400); RDW Coefficient Variation 13.3 % (11.7-14.2); RDW Standard Deviation 44.5 fL (35.1-46.3); Red Blood Cell Count 3.83 M/mm3 (4.30-5.90); White Blood Cell Count 11.03 K/mm3 (4.00-11.30)
[2020-07-17 04:23] LABS: Albumin, Blood 2.2 g/dL (3.4-5.0); Anion Gap 5 mmol/L (6-16); Blood Urea Nitrogen 17 mg/dL (8-24); Bun/Creatinine Ratio 19.1 (12.0-20.0); CO2, Blood 29 mmol/L (21-32); Calcium, Blood 8.2 mg/dL (8.5-10.1); Chloride, Blood 98 mmol/L (98-108); Creatinine, Blood 0.89 mg/dL (0.60-1.20); Glomerular Filtration Rate >60 (60-); Glucose, Blood 123 mg/dL (70-99); Phosphorus, Blood 3.9 mg/dL (2.5-4.9); Potassium, Blood 4.3 mmol/L (3.5-5.5); Sodium, Blood 132 mmol/L (136-145)
--- NOTE | 2020-07-17 06:15 | NUR ---
NO ACUTE CHANGES TO REPORT. VSS. BEDBATH GIVEN. PATIENT MEDICATED FOR PAIN IN LEFT KNEE. PATIENT SLEPT ABOUT EIGHT HOURS LAST NIGHT. WILL CONTINUE TO MONITOR AND ASSESS UNTIL END OF SHIFT.
--- NOTE | 2020-07-17 08:27 | NUR ---
ASSUMED CARE OF PT AT SHIFT CHANGE, RECEIVED REPORT FROM FRANKIE RUTHERFORD. PT RESTING QUIETLY IN ROOM, SITTING UP AND EATING BREAKFAST AT THIS TIME.
--- NOTE | 2020-07-17 17:00 | NUR ---
PT RECEIVES ROOM IN MEDICAL DEPT. REPORT GIVEN TO FRANKIE ESPINLA TO RECEIVE PT.
--- NOTE | 2020-07-17 17:59 | NUR ---
TRANSFER FROM U 6 TO [facility] 310 @ [phone]. PT ARRIVE TO ACCOMPANIED BY S/O. THEY STATE HAVE DECIDED TOO HAVE CHAVEZ RECOMMENDED BY DR BUITRAGO(ID). DR RHODES NOTIFIED, ORDER CARDIAC CONSULT, CALLED TO CARDIOLOGY ANS SERV. PT IS A/O X2-3, MI'KMAQ. STATE SORENESS L KNEE OTHERWISE COMFORTABLE. LIDODERM PATCH APPLIED TO KNEE, SITE IS SOMEWHAT SWOLLEN HOWEVER NO REDNESS. HR IRREG w MURMUR, HX AFIB, SCHEDULED XARELTO GIVEN. SITTING UP IN BED FOR DINNER, WATCHING TV, INTERACTING w S/O. ORIENTED TO , CALL SYSTEM & FALL PRECAUTIONS, HE VERBALIZE UNDERSTANDING.
--- NOTE | 2020-07-18 05:22 | NUR ---
SHIFT SUMMARY PT HAS AHD NO ACUTE CHANGES SINCE ASSUMING CARE, NO C/O ANY KIND, PLEASANTLY CONFUSED T/O SHIFT- NEEDED REPEATED REORIENTATION T/O NIGHT, STRAIGHT CATH NEEDED X1 FOR PVR OF 574MLS, PT BEDRESTING AT THIS TIME, CALL LIGHT IN REACH, BED ALARM ACTIVE, WILL CONT TO MONITOR UNTIL REPORT GIVEN TO DAY RN.
--- NOTE | 2020-07-18 15:51 | NUR ---
met with cardilogist, hospitaist and michael and his SO this morning. We reviewed The risk and benefit of the CHAVEZ. pt was able to track most of the conversation but with great difficulty and retaining it was hard. Cardiology left it for him to discuss with family. We reviewed it carefully and pt decicide thr risk was worth the benefit. We had an extenisve conversation on future care, prognosis and levels of care. we completed a polst for DNR limited treatments. 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 pt was very fatigued by the end of the conversation. Reviewed our interaction with his daughter pj and offered her follow up information. They are considering transition to hospice in the future based on his memory and decreasing cardiac function. They are open to in home treament with antibiotic they think it may enhance his quality of life. processed polst to medical records and original given to family with instrctions. will fax copy to [place] medical records.
--- NOTE | 2020-07-18 17:35 | NUR ---
SUMMARY PT IS A/O X2, FORGETFUL, PLEASANT AFFECT. HE STATE MILD DISCOMFORT L KNEE, NO REDNESS, SWELLING IS DECREASING, TYLENOL & LIDODERM PTCH FOR PAIN CONTROL/RELIEF. HE HAS BEEN OOB w PT/OT TODAY FOR EVAL/TX, UP IN CHAIR. DR HERNANDEZ IN TO SEE HIM THIS AM TO EXPLAIN CHAVEZ PROCEDURE. PT & S/O REQUIRE MORE TIME TO CONSIDER HOWEVER LATER IN MORNING DECIDE TO HAVE PROCEDURE, SIGN CONSENT W PALLIATIVE CARE RN. DR RHODES, DR HERNANDEZ NOTIFIED. PT WAS NPO @ LUNCH FOR PROCEDURE HOWEVER [facility] CALL, STATE DR HERNANDEZ CANCEL UMTIL AM D/T BUSY SCHEDULE. PT WILL BE NPO AFTER MIDNITE. S/O NOTIFIED. VSS.
--- NOTE | 2020-07-19 04:24 | NUR ---
night clerk auditor summary pt is a/o x1 to self. very confused tonight and needing frequent re-orientation. pt had some visual hallucinations talking about a "merry go around", "misquito and larva" on the ceiling". denies pain, nausea, dizziniess. tried to get out of bed a few times tonight. bed alarm in place all night. bed in lowest position. vss. bladder scan of 516ml around 0100. straight cathed with 625ml output at 0300.
--- NOTE | 2020-07-19 07:52 | NUR ---
PATIENT OFF UNIT FOR CHAVEZ. ELENI LILO NOTIFIED BY PHONE PER HER REQUEST.
--- NOTE | 2020-07-19 18:31 | NUR ---
SHIFT SUMMARY: NO ACUTE EVENTS THIS SHIFT. ALERT TO SELF AND FAMILY ONLY. DENIED PAIN. BLADDER SCANNED AND STRAIGHT CATH X 2 THIS SHIFT FOR RETENTION, TOLERATED WELL. CHAVEZ COMPLETE. TOLERATING DIET. GETTING UP TO CHAIR WITH ASSISTANCE FOR MEALS. HAD VISITS FROM GF AND GRANDDAUGHTER.
--- NOTE | 2020-07-20 02:08 | NUR ---
07/20/20 0145 BLADDER SCAN = 388 ML OF URINE. PT NOT UNCOMFORTABLE. TAKING SNACK.
--- NOTE | 2020-07-20 07:47 | NUR ---
07/20/20 0615 PT PLEASANTLY CONFUSED. EASILY RE-DIRECTABLE AND RE-ORIENTED TO SURROUNDINGS. BED ALARM ON. BLADDER SCAN DONE AT 0145 = 388 ML. DENIES ANY S/S OR DISCOMFORT. VITALS STABLE.
--- NOTE | 2020-07-20 18:32 | NUR ---
SHIFT SUMMARY: NO ACUTE EVENTS THIS SHIFT. A&O X 1-2, IS LUCID AT TIMES. VOIDED USING URINAL X 2, STRAIGHT CATH X 1 FOR 520 ML. PICC LINE PLACED IN L ARM FOR ORTHOTIST IV ABX. DENIED PAIN. TOOK A SHOWER PRIOR TO PICC INSERTION. GOOD APPETITE. POSSIBLE D/C HOME WITH IV ABX TOMORROW.
--- NOTE | 2020-07-20 23:17 | NUR ---
07/21/20 2300 BLADDER SCAN AT 10 PM = 654 ML. PT VOIDED 220ML AT 2245. ST CATH DONE AND 650 ML DRAINED. PT WATCHING TV. BED ALARM ON. PLEASANTLY CONFUSED.
[2020-07-21 05:31] LABS: Hemoglobin 11.5 g/dL (13.5-17.5); Mean Corpuscular HGB Conc 31.9 g/dL (31.5-36.5); Mean Corpuscular Volume 94 fL (80-100); Mean Platelet Volume 12.1 fL (9.1-12.4); Platelet Count 256 K/mm3 (150-400); RDW Coefficient Variation 13.6 % (11.7-14.2); RDW Standard Deviation 46.2 fL (35.1-46.3); Red Blood Cell Count 3.83 M/mm3 (4.30-5.90); White Blood Cell Count 9.05 K/mm3 (4.00-11.30)
[2020-07-21 05:53] LABS: Albumin, Blood 2.3 g/dL (3.4-5.0); Anion Gap 5 mmol/L (6-16); Blood Urea Nitrogen 20 mg/dL (8-24); Bun/Creatinine Ratio 21.5 (12.0-20.0); CO2, Blood 27 mmol/L (21-32); Calcium, Blood 8.2 mg/dL (8.5-10.1); Chloride, Blood 106 mmol/L (98-108); Creatinine, Blood 0.93 mg/dL (0.60-1.20); Glomerular Filtration Rate >60 (60-); Glucose, Blood 123 mg/dL (70-99); Phosphorus, Blood 3.7 mg/dL (2.5-4.9); Potassium, Blood 4.5 mmol/L (3.5-5.5); Sodium, Blood 138 mmol/L (136-145)
--- NOTE | 2020-07-21 07:40 | NUR ---
07/21/20 0620 BLADDER SCAN THIS AM WAS 589 ML. PT VOIDED 150 ML JUST [address]IOR TO ST.CATH. ST CATHED 600 ML CLEAR YELLOW URINE. PT VERY IMPULSIVE AND CONFUSED TO SURROUNDINGS. FORGETS TO USE CALL SYSTEM EVEN WHEN REMINDED FREQUENTLY. BED ALARM ON. DENIES ANY DISCOMFORT.
[2020-07-21] MEDS ORDERED: CEFTRIAXON2 GM/50 M1 IV (10:22)
[2020-07-21] MEDS ORDERED: LIDOCAINE1 EAC1 TOP (10:25)
[2020-07-21] MEDS ORDERED: METO50 PO (10:27)
[2020-07-21] MEDS ORDERED: VISBIOME PROBIOTIC PO (10:28)
[2020-07-21] MEDS ORDERED: SENN187 PO (10:28)
--- NOTE | 2020-07-21 16:08 | NUR ---
SHIFT SUMMARY NO ACUTE CHANGES TODAY. PT STILL HAVING TO BE STRAIGHT CATHED R/T URINARY RETENTION. FAMILY AT BEDSIDE AND SUPPORTIVE. PLAN IS FOR PT TO BE DISCHARGED HOME WITH HOME HEALTH TOMORROW LONG IV ABX ARE IN PLACE. CARE MANAGEMENT WORKING ON DISCHARGE. PICC LINE TO JOSESITO WNJovani. CALL LIGHT WITHIN REACH. BED ALARM IN PLACE FOR SAFETY PT IS PLEASANTLY CONFUSED.
--- NOTE | 2020-07-21 19:17 | NUR ---
Initial spiritual care note: Advanced directive completed with Mr. Morejon's SOCierra and dtrDominga. All were in agreement. Document notarized and several copies made. Mr. Morejon appears frail, but made little jokes and smiles easily. He is clearly well loved. Provided affirmation and prayer. I will remain available.
--- NOTE | 2020-07-21 23:42 | NUR ---
07/21/20 2220 BLADDER SCAN = 483 ML.
--- NOTE | 2020-07-21 23:43 | NUR ---
07/21/[address] CATHED= 525 ML CLEAR YELLOW URINE. PLEASANTLY CONFUSED TO SURROUNDINGS. BED ALARM ON. CALL PRO WITHIN REACH AND REMINDED IN HOW TO USE.
--- NOTE | 2020-07-22 07:33 | NUR ---
07/22/[address] CATHED 850ML BY ADAM BARAJAS RN. HE HAD VOIDED 150 PRIOR.
--- NOTE | 2020-07-22 18:37 | NUR ---
DISCHARGE PT AND GIRLFRIEND VERBALIZED UNDERSTANDING OF THE DISCHARGE PAPERWORK. THIS RN DEMONSTRATION IV ANTIBIOTIC ADMINISTRATION, PER GIRLFRIEND REQUEST, AND ALL OF HER QUESTIONS WERE ANSWERED. HH TO FOLLOWUP TOMORROW, GIRLFRIEND AWARE. SOPHIA PACHECOAY TO GIVE EARLY, PER PHARMACY, AND MD. TODAYS DOSE GIVEN AND PT DISCHARGING AT THIS TIME, IN GIRLFRIEND'S VEHICLE. ALL PERSONAL BELONGINGS IN THEIR POSSESSION. PICC LINE IN PLACE.
== END 2020-07-22 18:44 | disposition home health service (06) | DRG 871 ==
LOC: ER 12:39 → PCU 19:29 → MEDS 19:29 → PCU 19:32 → MEDS 07-17 17:25 → ENPENDDIS 07-21 09:04 → MEDS 07-22 18:44
PROVIDERS: Internal Medicine; Student in an Organized Health Care Education/Training Program; ADMIT Internal Medicine
PROC: B246ZZ4 Ultrasonography of Right and Left Heart, Transesophageal (ICD-10-PCS; principal; 2020-07-19)
PROC: 02HV33Z Insertion of Infusion Device into Superior Vena Cava, Percutaneous Approach (ICD-10-PCS; 2020-07-20)
DX: A40.9 Streptococcal sepsis, unspecified (principal); J96.01 Acute respiratory failure with hypoxia; G93.41 Metabolic encephalopathy; I33.0 Acute and subacute infective endocarditis; I25.2 Old myocardial infarction; R65.20 Severe sepsis without septic shock; Z79.82 Long term (current) use of aspirin; J44.9 Chronic obstructive pulmonary disease, unspecified; I10 Essential (primary) hypertension; Z95.5 Presence of coronary angioplasty implant and graft; I25.10 Atherosclerotic heart disease of native coronary artery without angina pectoris; I77.9 Disorder of arteries and arterioles, unspecified; Z86.73 Personal history of transient ischemic attack (TIA), and cerebral infarction without residual deficits; Z87.891 Personal history of nicotine dependence; E11.9 Type 2 diabetes mellitus without complications; E03.9 Hypothyroidism, unspecified; Z90.79 Acquired absence of other genital organ(s); I27.20 Pulmonary hypertension, unspecified; F03.90 Unspecified dementia, unspecified severity, without behavioral disturbance, psychotic disturbance, mood disturbance, and anxiety; I48.91 Unspecified atrial fibrillation; N40.1 Benign prostatic hyperplasia with lower urinary tract symptoms; R33.9 Retention of urine, unspecified; W18.30XA Fall on same level, unspecified, initial encounter; Y93.9 Activity, unspecified; Y92.239 Unspecified place in hospital as the place of occurrence of the external cause; S80.02XA Contusion of left knee, initial encounter; I05.2 Rheumatic mitral stenosis with insufficiency; Z79.84 Long term (current) use of oral hypoglycemic drugs
CPT/HCPCS: 0099U; 36415; 51701; 71045; 73560-LT; 74177; 80048; 80053; 80069; 81003; 82947; 83605; 84484; 85025; 85027; 87040; 87184; 87804; 93005; 93010; 93306; 93312; 93325; 96365-59; 96375-59; 97110; 97116; 97162; 97530; 99285-25; A9270; A9270-GY; J0456; J0696; J2250; J2550; J3010; J7030; J7050; Q9967; U0003

== ENCOUNTER 2020-08-13 13:42 | Inpatient (IN) | payer OTHER, MEDICARE ==
[~2020-08-13] VITALS: Ht 172.7 cm; Wt 74.5 kg
[~2020-08-13 13:42] MED LIST changes: +ATOR40TA PO; +Aspir 8181 MG PO; +CEFTRIAXON2 GM/50 M1 IV; +ELIQUIS5 MG PO; +LEVSOD75 PO; +LIDOCAINE1 EAC1 TOP; +Loratadine10 MG PO; +METF500C PO; +METO50 PO; +PANT40 PO; +SENN187 PO; +VISBIOME PROBIOTIC PO; +Vitamin D2000 UNIT PO; +ZENPEP DR 10,01 EACH PO
[2020-08-13] MEDS ORDERED: Aspir 8181 MG PO (14:23)
[2020-08-13] MEDS ORDERED: ZENPEP DR 10,01 EACH (14:24)
[2020-08-13] MEDS ORDERED: ZENPEP DR 10,01 EACH PO (14:24)
[2020-08-13 14:30] LABS: BASOPHILS ABSOLUTE AUTO 0.08 K/mm3 (0.00-0.23); BASOPHILS PERCENT AUTO 1 % (0-2); EOSINOPHILS ABSOLUTE AUTO 0.03 K/mm3 (0.00-0.68); EOSINOPHILS PERCENT AUTO 0 % (0-6); Hematocrit 47.5 % (37.0-53.0); Hemoglobin 15.5 g/dL (13.5-17.5); IMMATURE GRAN ABSOLUTE AUTO 0.48 K/mm3 (0.00-0.10); IMMATURE GRAN PERCENT AUTO 3 % (0-1); LYMPHOCYTES PERCENT AUTO 10 % (21-46); MONOCYTES ABSOLUTE AUTO 1.94 K/mm3 (0.16-1.47); MONOCYTES PERCENT AUTO 11 % (4-13); Mean Corpuscular HGB 30.4 pg (26.0-34.0); Mean Corpuscular HGB Conc 32.6 g/dL (31.5-36.5); Mean Corpuscular Volume 93 fL (80-100); Mean Platelet Volume 11.8 fL (9.1-12.4); NEUTROPHILS ABSOLUTE AUTO 13.25 K/mm3 (1.96-9.15); NEUTROPHILS PERCENT AUTO 75 % (41-73); Platelet Count 179 K/mm3 (150-400); RDW Coefficient Variation 13.9 % (11.7-14.2); RDW Standard Deviation 46.5 fL (35.1-46.3); White Blood Cell Count 17.58 K/mm3 (4.00-11.30)
[2020-08-13 14:40] LABS: Alanine Aminotransfer (ALT/SGP 33 U/L (12-78); Albumin, Blood 2.9 g/dL (3.4-5.0); Albumin/Globulin Ratio 0.9 (0.8-1.8); Alk Phos 159 U/L (50-136); Anion Gap 5 mmol/L (6-16); Aspartate Aminotrans (AST/SGOT 16 U/L (12-37); Bilirubin, Total 0.9 mg/dL (0.1-1.0); Blood Urea Nitrogen 27 mg/dL (8-24); Bun/Creatinine Ratio 28.2 (12.0-20.0); CO2, Blood 27 mmol/L (21-32); Calcium, Blood 8.3 mg/dL (8.5-10.1); Chloride, Blood 104 mmol/L (98-108); Creatinine, Blood 0.96 mg/dL (0.60-1.20); Globulin, Blood 3.3 g/dL (2.2-4.0); Glomerular Filtration Rate >60 (60-); Glucose, Blood 171 mg/dL (70-99); Potassium, Blood 4.6 mmol/L (3.5-5.5); Sodium, Blood 136 mmol/L (136-145); Total Protein, Blood 6.2 g/dL (6.4-8.2); Troponin I <0.015 ng/mL (0.000-0.040)
--- NOTE | 2020-08-13 19:17 | NUR ---
RECEIVED REPORT FORM ED; PT TO ROOM AT 1900. REPORT GIVEN TO ONCOMING RN.
[2020-08-13 20:38] LABS: Source, Urine Clean Catch
[2020-08-13 20:54] LABS: Bilirubin, Urine Neg (Neg); Blood, Urine Neg (Neg); Glucose Qualitative, Urine Neg (Neg); Ketones, Urine Neg (Neg); Leukocyte Esterase, Urine Neg (Neg); Nitrite, Urine Neg (Neg); Protein, Urine Neg (Neg); Urobilinogen, Urine NORM (Normal)
--- NOTE | 2020-08-13 20:54 | NUR ---
RN CALLED TO [facility] FOR CONSULT ORDER AT 6992 08/13/20
[2020-08-13 21:02] LABS: Appearance, Urine Clear (Clear); Color, Urine Yellow (P-Yellow)
[2020-08-13 23:51] LABS: Adenovirus Not Detected (NOT DETECT); Bordetella pertussis Not Detected (NOT DETECT); Chlamydophila pneumoniae Not Detected (NOT DETECT); Coronavirus 229E Not Detected (NOT DETECT); Coronavirus HKU1 Not Detected (NOT DETECT); Coronavirus NL63 Not Detected (NOT DETECT); Coronavirus OC43 Not Detected (NOT DETECT); Human Metapneumovirus Not Detected (NOT DETECT); Human Rhinovirus/Enterovirus Not Detected (NOT DETECT); Influenza A/2009-H1 Not Detected (NOT DETECT); Influenza A/H1 Not Detected (NOT DETECT); Influenza A/H3 Not Detected (NOT DETECT); Influenza B Not Detected (NOT DETECT); Mycoplasma pneumoniae Not Detected (NOT DETECT); Parainfluenza Virus 1 Not Detected (NOT DETECT); Parainfluenza Virus 2 Not Detected (NOT DETECT); Parainfluenza Virus 3 Not Detected (NOT DETECT); Parainfluenza Virus 4 Not Detected (NOT DETECT); Respiratory Syncytial Virus Not Detected (NOT DETECT); SARS-Cov-2 (COVID-19), BioFire Not Detected (NOT DETECT)
[2020-08-14 04:19] LABS: BASOPHILS ABSOLUTE AUTO 0.04 K/mm3 (0.00-0.23); BASOPHILS PERCENT AUTO 0 % (0-2); EOSINOPHILS ABSOLUTE AUTO 0.08 K/mm3 (0.00-0.68); EOSINOPHILS PERCENT AUTO 1 % (0-6); Hematocrit 40.3 % (37.0-53.0); Hemoglobin 13.1 g/dL (13.5-17.5); IMMATURE GRAN ABSOLUTE AUTO 0.34 K/mm3 (0.00-0.10); IMMATURE GRAN PERCENT AUTO 2 % (0-1); LYMPHOCYTES ABSOLUTE AUTO 1.99 K/mm3 (0.84-5.20); LYMPHOCYTES PERCENT AUTO 13 % (21-46); MONOCYTES ABSOLUTE AUTO 1.84 K/mm3 (0.16-1.47); MONOCYTES PERCENT AUTO 12 % (4-13); Mean Corpuscular HGB 29.8 pg (26.0-34.0); Mean Corpuscular HGB Conc 32.5 g/dL (31.5-36.5); Mean Corpuscular Volume 92 fL (80-100); NEUTROPHILS ABSOLUTE AUTO 11.39 K/mm3 (1.96-9.15); NEUTROPHILS PERCENT AUTO 73 % (41-73); Platelet Count 143 K/mm3 (150-400); RDW Coefficient Variation 13.8 % (11.7-14.2); RDW Standard Deviation 45.7 fL (35.1-46.3); Red Blood Cell Count 4.39 M/mm3 (4.30-5.90); White Blood Cell Count 15.68 K/mm3 (4.00-11.30)
[2020-08-14 04:37] LABS: Alanine Aminotransfer (ALT/SGP 32 U/L (12-78); Albumin, Blood 2.4 g/dL (3.4-5.0); Albumin/Globulin Ratio 0.8 (0.8-1.8); Alk Phos 134 U/L (50-136); Anion Gap 5 mmol/L (6-16); Aspartate Aminotrans (AST/SGOT 15 U/L (12-37); Bilirubin, Total 0.6 mg/dL (0.1-1.0); Blood Urea Nitrogen 22 mg/dL (8-24); Bun/Creatinine Ratio 32.2 (12.0-20.0); CO2, Blood 26 mmol/L (21-32); Calcium, Blood 7.9 mg/dL (8.5-10.1); Chloride, Blood 107 mmol/L (98-108); Creatinine, Blood 0.68 mg/dL (0.60-1.20); Globulin, Blood 2.9 g/dL (2.2-4.0); Glomerular Filtration Rate >60 (60-); Glucose, Blood 115 mg/dL (70-99); Potassium, Blood 4.4 mmol/L (3.5-5.5); Sodium, Blood 138 mmol/L (136-145); Total Protein, Blood 5.3 g/dL (6.4-8.2)
--- NOTE | 2020-08-14 05:29 | NUR ---
PT RESTED COMFORTABLY THROUGH SHIFT NPO SINCE MIDNIGHT IN THE EVENT TESTING OR IMAGING WILL BE DONE AO TELE - NSR W PVC CONT PULSE OX - SATTING >90% ON RA/RESP PANEL SENT TO LAB, NEGATIVE 1 BM VOIDS TO URINAL AT BEDSIDE - 300ML - UA SENT TO LAB, NEGATIVE STAND BY ASSIST WITH BED ALARM ON - HX OF FALLS/PT DOES NOT USE CALL LIGHT 20G RFA - SL/LUE PICC WITH NS @75 - PICC LINE DRAWS BLOOD NO C/O PAIN CALL LIGHT WITHIN REACH, BED IN LOWEST POSITION. WILL CONTINUE TO MONITOR.
--- NOTE | 2020-08-14 15:37 | NUR ---
Pt's medical history and comorbidities include: Pancreatic Cancer Post Whipple and Chemo, CAD-Post CO and Stent Placement, TIA's, COPD, HTN, Mitral Valve Reguritation, Mitral Valve Prolapse, Carotid Artery Disease, Endocarditis, and Afib. Pt resting in bed upon arrival. Pt denies pain, anxiety, nausea, and dyspnea at this time. Pt's girlfriend Cierra at bedside. Engaged in therapeutic listening as Pt reports living at home with his girlfriend Cierra and son. Pt reports using a walker when ambulating and often needs additional standbye assistance. Pt requires assistance with bathing and dressing as well. Pt's granddaughter Janice arrives to visit. Family engages in discussion regarding Pt's wishes for procedure. Pt is unsure if he wants to transfer to higher level of care and have surgery. Pt also unsure regarding his wishes for life sustaining measures. Continued therapeutic listening. After granddaughter leaves Pt reports not wanting procedure and does not want to transfer to higher level of care. Discussed further regarding CPR. Pt completed POLST with Palliative Care FRANKIE Cook last month with wishes to be DNR. Educated on life sustaining measures including risk factors and implications. Pt reports POLST still reflects his wishes and wants to be DNR. Discussed the risks of not having procedure and deferred to MD on questions regarding speed of decline of heart without procedure. Discussed the importance of considering hospice at somepoint is disease process. Pt and girlfriend express appreciation of visit and report no other concerns at this time. Spoke with Bedside FRANKIE Gonzalez and discussed case. Spoke with Dr Lovett, discussed case, and Pt's wishes for DNR and no procedure. Dr Lovett will change code status and have further discussion with Pt after Dr Hendricks consults. Spoke with Zaki Phillips and discussed case. Palliative Care will remain available for supportive therapeutic visits.
--- NOTE | 2020-08-14 16:31 | NUR ---
SHIFT NOTE DR IVY MET WITH PT AND S/O ABOUT POSSIBLE TRANSFER R/T THE VEGETATION GROWING ON HIS HEART. PT AND S/O REFUSED TRANSPORT AND SURGICAL INTERVENTION, PALLIATIVE CARE WAS IN TO DISCUSS OPTIONS BUT NO DECSIONS WERE MADE AT THE TIME OF THIS NOTE. PT IS CONFUSED, FORGETS LIMITATIONS, DOES NOT USE CALL LIGHT, BED ALARM IS IN PLACE TO ENSURE THAT PT IS NOT IMPULSIVE AND EXITS BED. DR BUITRAGO WILL BE IN RE-EVALUATE TOMORROW MORNING FOR POSSIBLE NONINVASIVE TREATMENTS
--- NOTE | 2020-08-14 21:37 | NUR ---
PCU 9 TRANSFER ARRIVED TO ROOM. BHARATH IS ALERT TO SELF, DID NOT UNDERSTAND WHY HE WAS BEING TRANSFERRED, EXPLAINED IT TO HIM. WAS ABLE TO TRANSFER SELF TO BED BUT HE STUMBLED AND FELL ONTO THE BED INSTEAD OF SITTING. REPORT IS THAT HE IS VERY IMPULSIVE WHEN NEEDING TO USE THE BATHROOM. BHARATH REPORTS THAT WHEN HE HAS TO USE THE BATHROOM IT IS URGENT TO PREVENT HIM LEAKING ON HIMSELF. DISCUSSED USE OF BSC AND USE OF CALL LIGHT. HE SAID THAT WOULD BE FINE, WILL TEST TO SEE HOW HE DOES. SKIN LOOKS GOOD. NO CHEST PAIN OR SOB. LUNGS DIMINISHED. TELE IN PLACE. BED ALARM IS ON. CALL LIGHT GIVEN.
[2020-08-15 05:01] LABS: BASOPHILS ABSOLUTE AUTO 0.03 K/mm3 (0.00-0.23); BASOPHILS PERCENT AUTO 0 % (0-2); EOSINOPHILS ABSOLUTE AUTO 0.04 K/mm3 (0.00-0.68); EOSINOPHILS PERCENT AUTO 0 % (0-6); Hematocrit 41.8 % (37.0-53.0); Hemoglobin 13.6 g/dL (13.5-17.5); IMMATURE GRAN ABSOLUTE AUTO 0.17 K/mm3 (0.00-0.10); IMMATURE GRAN PERCENT AUTO 1 % (0-1); LYMPHOCYTES ABSOLUTE AUTO 1.72 K/mm3 (0.84-5.20); LYMPHOCYTES PERCENT AUTO 12 % (21-46); MONOCYTES ABSOLUTE AUTO 1.68 K/mm3 (0.16-1.47); MONOCYTES PERCENT AUTO 12 % (4-13); Mean Corpuscular HGB 29.8 pg (26.0-34.0); Mean Corpuscular HGB Conc 32.5 g/dL (31.5-36.5); Mean Corpuscular Volume 92 fL (80-100); NEUTROPHILS ABSOLUTE AUTO 10.43 K/mm3 (1.96-9.15); NEUTROPHILS PERCENT AUTO 74 % (41-73); Platelet Count 138 K/mm3 (150-400); RDW Coefficient Variation 13.9 % (11.7-14.2); RDW Standard Deviation 46.7 fL (35.1-46.3); Red Blood Cell Count 4.57 M/mm3 (4.30-5.90); White Blood Cell Count 14.07 K/mm3 (4.00-11.30)
[2020-08-15 05:24] LABS: Albumin, Blood 2.4 g/dL (3.4-5.0); Anion Gap 7 mmol/L (6-16); Blood Urea Nitrogen 20 mg/dL (8-24); Bun/Creatinine Ratio 25.9 (12.0-20.0); CO2, Blood 25 mmol/L (21-32); Calcium, Blood 7.9 mg/dL (8.5-10.1); Chloride, Blood 107 mmol/L (98-108); Creatinine, Blood 0.77 mg/dL (0.60-1.20); Gentamicin, Random 0.9 ug/Ml; Glomerular Filtration Rate >60 (60-); Glucose, Blood 134 mg/dL (70-99); Phosphorus, Blood 3.9 mg/dL (2.5-4.9); Potassium, Blood 4.4 mmol/L (3.5-5.5); Sodium, Blood 139 mmol/L (136-145)
--- NOTE | 2020-08-15 06:41 | NUR ---
SHIFT SUMMARY: PATIENT WAS A TRANSFER FROM PCU 9. AOX2, HAS HISTORY OF DEMENTIA AND IS IMPULSIVE WHEN HE HAS TO USE THE BATHROOM. FORGETS TO USE CALL LIGHT AND SETS OFF BED ALARM. PLACED BSC NEXT TO BED AND HE DID BETTER GETTING UP TO THAT. REPORTS THAT HE HAS URGENCY AND DOES NOT LIKE TO WAIT TILL HE STARTS TO HAVE DRIBBLES. HE DID USE CALL LIGHT A FEW TIMES. HR INCREASED TO 180'S WHEN HE GETS UP, AND WILL RETURN TO NORMAL WITH IN 4-6 MINUTES. TELE REPORTS AFIB. DENIES ANY CHEST PAIN, SOB, OR PALPITATIONS. VS WNL FOR THE PATIENT. IV CONTIUES TO INFUSE AT 75ML AN HOUR. SLEPT OFF AND ON THIS SHIFT. BED ALARM ON, CALL LIGHT IN REACH.
--- NOTE | 2020-08-15 09:38 | NUR ---
PCU DOOR FITTER REPORT AFIB, TACHY 120-130, HIGH [address] IVY NOTIFIED, ORDER IV METOPROLOL 5MG. TELE REPORT HR IMPROVE TO 100.
--- NOTE | 2020-08-15 15:59 | NUR ---
SUMMARY PT IS A/O X2-3, FORGETFUL, @ X'S IMPULSIVE, SBA TO BR. USING BED ALARM/FALL PRECAUTIONS. DR IVY IN THIS AM TO REVIEW TX w PT, FOR NOW WE WILL CONTINUE IV ANTIBX. PLAN RELAYED TO HIS S/O LILO WHEN SHE ARRIVED, PALLIATIVE CARE RN ALSO REVIEW TX WITH THEM. HR AFIB/TELE MX, THIS AM TACHY HIGH 180. DR IVY ORDER PRN METOPROLOL 5MG IV, HR IMPROVE LOW 100'S. RESTART ORAL METOPROLOL & XARELTO THIS AFTERNOON.
--- NOTE | 2020-08-15 20:22 | NUR ---
ASSUMED CARE. WILL IS MORE ALERT THEN HE IS AT NIGHT. HE IS ABLE TO TELL ME HISTORY AND WHERE HE IS AT. DENIES ANY PAIN OR DISCOMFORT. NO CHEST PAIN OR PALPITATIONS. TELE REPORTS AFIB IN THE 80'S. NO EDEMA NOTED. DENIES ANY NEEDS. VS WNL. ADMINISTERED NIGHT MEDS. CALL LIGHT IN REACH, BED ALARM ON.
--- NOTE | 2020-08-15 20:30 | NUR ---
PT UP TO BSC, TELE MONITOR CALLED AND REPORTED INCREASE OF HR FROM 90 TO 130'S. ENCOURAGED HER CALL IF HR SUSTAINS AT THAT LEVEL.
--- NOTE | 2020-08-15 21:34 | NUR ---
BED ALARM SOUNDING, BHARATH STARTING TO HAVE CONFUSION, DOES NOT REMEMBER THAT HE IS IN THE HOSPITAL. REORIENTED HIM. HE TRIED TO GET UP TO BSC EXCEPT HE WAS NOT ABLE TO HOLD SELF IN SITTING POSITION ON THE BED. CONTINUED TO FALL BACK. WHEN STANDING HE WAS VERY WOBBLY AND WEAK. HE SAID HE DOES NOT KNOW WHAT WAS HAPPENING. WHEN HE GOT UP FROM BSC HE WAS BACK TO BASE LINE. DENIED DIZZINESS, LIGHTHEADNESS, CHEST DISCOMFORT. WILL MONITOR AND CHECK VITALS NEXT TIME IT IS NOTED.
[2020-08-16 04:38] LABS: BASOPHILS ABSOLUTE AUTO 0.03 K/mm3 (0.00-0.23); BASOPHILS PERCENT AUTO 0 % (0-2); EOSINOPHILS ABSOLUTE AUTO 0.06 K/mm3 (0.00-0.68); EOSINOPHILS PERCENT AUTO 1 % (0-6); Hematocrit 38.8 % (37.0-53.0); Hemoglobin 12.8 g/dL (13.5-17.5); IMMATURE GRAN ABSOLUTE AUTO 0.09 K/mm3 (0.00-0.10); IMMATURE GRAN PERCENT AUTO 1 % (0-1); LYMPHOCYTES ABSOLUTE AUTO 1.91 K/mm3 (0.84-5.20); LYMPHOCYTES PERCENT AUTO 15 % (21-46); MONOCYTES ABSOLUTE AUTO 1.64 K/mm3 (0.16-1.47); MONOCYTES PERCENT AUTO 13 % (4-13); Mean Corpuscular Volume 91 fL (80-100); Mean Platelet Volume 12.7 fL (9.1-12.4); NEUTROPHILS PERCENT AUTO 71 % (41-73); Platelet Count 123 K/mm3 (150-400); RDW Coefficient Variation 13.9 % (11.7-14.2); Red Blood Cell Count 4.27 M/mm3 (4.30-5.90); White Blood Cell Count 13.03 K/mm3 (4.00-11.30)
[2020-08-16 04:54] LABS: Albumin, Blood 2.5 g/dL (3.4-5.0); Anion Gap 5 mmol/L (6-16); Blood Urea Nitrogen 23 mg/dL (8-24); Bun/Creatinine Ratio 27.8 (12.0-20.0); CO2, Blood 28 mmol/L (21-32); Calcium, Blood 8.1 mg/dL (8.5-10.1); Chloride, Blood 104 mmol/L (98-108); Creatinine, Blood 0.83 mg/dL (0.60-1.20); Glomerular Filtration Rate >60 (60-); Glucose, Blood 146 mg/dL (70-99); Potassium, Blood 4.5 mmol/L (3.5-5.5); Sodium, Blood 137 mmol/L (136-145)
--- NOTE | 2020-08-16 06:36 | NUR ---
SHIFT SUMMARY: AOX3 AT START OF SHIFT BUT PATIENT MARIBELL HAS SUN DOWNERS, COME ABOUT 2130 HE STARTED TO HAVE CONFUSION ON WHERE HE WAS AT, HE DID NOT MAKE SENSE SOME OF THE TIME. CONTINUED TO SET OFF THE BED ALARM DUE TO FREQUENT URINATION EVERY HOUR. HE DID HAVE ONE EPISODE WHERE HE WAS UNABLE TO GET HIMSELF TO A SITTING POSITION, I HAD TO HOLD HIM UP. THEN WHEN STANDING HE WAS UNABLE TO STAND UP STRAIGHT AND LOOKED LIKE HE WAS GOING TO FALL. THIS ONLY LASTED SECONDS THEN RESOLVED, DID NOT HAVE ANOTHER OCCURANCE. HR HAS REMAINED IN THE 80'S BUT SPIKED TO 130 WHEN GETTING UP. VS WNL, AFEBRILE. NO PAIN, CHEST PAIN OR OTHER CHANGES. WILL REPORT TO DAY SHIFT. CALL LIGHT IN REACH, BED ALARM ON.
[2020-08-16 13:23] LABS: Gentamicin, Trough 0.3 ug/mL (0.0-1.9)
--- NOTE | 2020-08-16 17:59 | NUR ---
SHIFT SUMMARY. A&OX3, INTERMITTENT FORGETFULNESS, REORIENTS EASILY. PT DENIES PAIN, N/V, SOB. ONE ASSIST TO BATHROOM WITH FWW. GOOD MEAL INTAKE. SIGNIFICANT OTHER IN TO VISIT INTERMITTENTLY DURING THE SHIFT. NO NEW CHANGES OR CONCERNS.
--- NOTE | 2020-08-17 04:16 | NUR ---
COURTESY CAR DRIVER SUMMARY PT HAS HAD INCREASED CONFUSION DURING THE SHIFT AT TIMES NOT KNOWING WHERE HE IS. PT WOULD USE CALL LIGHT TO USE BSC BUT WOULD EXIT THE BED BEFORE ASSISTANCE COULD GET TO HIS ROOM. PT CONTINUED TO PRODUCE VERY LITTLE URINE DESPITE SEVERAL ATTEMPTS TO GO. PT HAS REMAINED ON TELE- AFIB INTHE 80'S. PT DENIES ANY C/P OR SOB.
[2020-08-17 06:00] LABS: BASOPHILS ABSOLUTE AUTO 0.02 K/mm3 (0.00-0.23); BASOPHILS PERCENT AUTO 0 % (0-2); EOSINOPHILS ABSOLUTE AUTO 0.11 K/mm3 (0.00-0.68); EOSINOPHILS PERCENT AUTO 1 % (0-6); Hematocrit 40.2 % (37.0-53.0); Hemoglobin 13.2 g/dL (13.5-17.5); IMMATURE GRAN PERCENT AUTO 1 % (0-1); LYMPHOCYTES ABSOLUTE AUTO 2.15 K/mm3 (0.84-5.20); LYMPHOCYTES PERCENT AUTO 15 % (21-46); MONOCYTES ABSOLUTE AUTO 2.01 K/mm3 (0.16-1.47); MONOCYTES PERCENT AUTO 14 % (4-13); Mean Corpuscular HGB 29.9 pg (26.0-34.0); Mean Corpuscular HGB Conc 32.8 g/dL (31.5-36.5); Mean Corpuscular Volume 91 fL (80-100); Mean Platelet Volume 12.4 fL (9.1-12.4); NEUTROPHILS ABSOLUTE AUTO 10.24 K/mm3 (1.96-9.15); NEUTROPHILS PERCENT AUTO 70 % (41-73); Platelet Count 131 K/mm3 (150-400); RDW Coefficient Variation 13.9 % (11.7-14.2); RDW Standard Deviation 46.8 fL (35.1-46.3); Red Blood Cell Count 4.42 M/mm3 (4.30-5.90); White Blood Cell Count 14.63 K/mm3 (4.00-11.30)
--- NOTE | 2020-08-17 18:31 | NUR ---
SHIFT SUMMARY. A&OX3, INTERMITTENT CONFUSION, UNAWARE OF LIMITATIONS AND DOES NOT USE CALL LIGHT, BED AND CHAIR ALARM UTILIZED FOR SAFETY. PT DENIES PAIN, SOB, N/V. GOOD MEAL INTAKE. NO NEW CHANGES OR CONCERNS.
--- NOTE | 2020-08-18 03:54 | NUR ---
INSTRUCTOR PROGRAMMABLE CONTROLLERS SUMMARY PT HAD HAD AN UNEVENTFUL NIGHT BUT STILL DISPLAYED SOME CONFUSION HE ATTEMPTED TO EXIT THE BED TO GO TO THE BATHROOM WITHOUT USING HIS CALL LIGHT. PT DENIED ANY PAIN OR SOB.
[2020-08-18 05:10] LABS: BASOPHILS ABSOLUTE AUTO 0.02 K/mm3 (0.00-0.23); BASOPHILS PERCENT AUTO 0 % (0-2); EOSINOPHILS ABSOLUTE AUTO 0.04 K/mm3 (0.00-0.68); EOSINOPHILS PERCENT AUTO 0 % (0-6); Hematocrit 41.1 % (37.0-53.0); Hemoglobin 13.5 g/dL (13.5-17.5); IMMATURE GRAN ABSOLUTE AUTO 0.11 K/mm3 (0.00-0.10); IMMATURE GRAN PERCENT AUTO 1 % (0-1); LYMPHOCYTES ABSOLUTE AUTO 2.43 K/mm3 (0.84-5.20); LYMPHOCYTES PERCENT AUTO 17 % (21-46); MONOCYTES ABSOLUTE AUTO 1.95 K/mm3 (0.16-1.47); MONOCYTES PERCENT AUTO 14 % (4-13); Mean Corpuscular HGB 29.9 pg (26.0-34.0); Mean Corpuscular HGB Conc 32.8 g/dL (31.5-36.5); Mean Corpuscular Volume 91 fL (80-100); Mean Platelet Volume 12.6 fL (9.1-12.4); NEUTROPHILS ABSOLUTE AUTO 9.39 K/mm3 (1.96-9.15); NEUTROPHILS PERCENT AUTO 67 % (41-73); Platelet Count 139 K/mm3 (150-400); RDW Coefficient Variation 13.9 % (11.7-14.2); RDW Standard Deviation 46.3 fL (35.1-46.3); Red Blood Cell Count 4.51 M/mm3 (4.30-5.90); White Blood Cell Count 13.94 K/mm3 (4.00-11.30)
[2020-08-18] MEDS ORDERED: ACET325 PO (16:13)
[2020-08-18] MEDS ORDERED: CEFTRIAXONE IV (16:15)
[2020-08-18] MEDS ORDERED: VISBIOME PROBIOTIC PO (16:17)
[2020-08-18] MEDS ORDERED: GENTAMICIN IV (16:17)
--- NOTE | 2020-08-18 19:26 | NUR ---
1855 PT DISCHARGED HOME VIA PERSONAL VEHICLE ACCOMPANIED AND DRIVEN BY SIGNIFICANT OTHER. ESCORTED TO ENTRANCE VIA W/C BY LANDING GEAR MECHANIC. IV ROCEPHIN AND GENTIMICIN GIVEN PRIOR TO D/C. PICC LINE PATENT AND FLUSHED. D/C INSTRUCTIONS REVIEWED WITH PT AND SIG OTHER AND COPY PROVIDED, PT TO GO TO [facility] FOR [facility] INFUSION TOMORROW AT 1500. NO OTHER CHANGES OR CONCERNS.
== END 2020-08-18 18:55 | disposition home or self-care (01) | DRG 288 ==
LOC: ER 13:42 → PCU 18:52 → MEDS 08-14 21:37
PROVIDERS: Family Medicine; Internal Medicine Infectious Disease; Physician Assistant; ADMIT Family Medicine
DX: I33.0 Acute and subacute infective endocarditis (principal); J96.01 Acute respiratory failure with hypoxia; A41.9 Sepsis, unspecified organism; I48.20 Chronic atrial fibrillation, unspecified; F05 Delirium due to known physiological condition; G93.40 Encephalopathy, unspecified; Z20.828 Contact with and (suspected) exposure to other viral communicable diseases; B95.4 Other streptococcus as the cause of diseases classified elsewhere; I95.9 Hypotension, unspecified; I08.0 Rheumatic disorders of both mitral and aortic valves; I25.10 Atherosclerotic heart disease of native coronary artery without angina pectoris; J44.9 Chronic obstructive pulmonary disease, unspecified; I11.0 Hypertensive heart disease with heart failure; I50.9 Heart failure, unspecified; E03.9 Hypothyroidism, unspecified; E78.5 Hyperlipidemia, unspecified; N40.0 Benign prostatic hyperplasia without lower urinary tract symptoms; I27.20 Pulmonary hypertension, unspecified; F03.90 Unspecified dementia, unspecified severity, without behavioral disturbance, psychotic disturbance, mood disturbance, and anxiety; I25.2 Old myocardial infarction; Z66 Do not resuscitate; Z86.73 Personal history of transient ischemic attack (TIA), and cerebral infarction without residual deficits; Z87.891 Personal history of nicotine dependence; Z88.5 Allergy status to narcotic agent; Z79.2 Long term (current) use of antibiotics; Z79.01 Long term (current) use of anticoagulants; Z79.84 Long term (current) use of oral hypoglycemic drugs; Z79.899 Other long term (current) drug therapy; Z95.5 Presence of coronary angioplasty implant and graft; Z85.07 Personal history of malignant neoplasm of pancreas
CPT/HCPCS: 0202U; 36415; 71045; 71046; 80053; 80069; 80170; 81003; 83605; 83735; 84145; 84484; 85025; 85651; 86140; 87040; 93005; 93010; 93308; 93321; 96361; 96365; 96368; 99285-25; A9270-GY; J0696; J1580; J3370; J7030; U0002

== ENCOUNTER 2020-08-19 00:13 | Day surgery (SDC) | payer MEDICARE, OTHER ==
[~2020-08-19 00:13] MED LIST changes: +ACET325 PO; +CEFTRIAXONE IV; +GENTAMICIN IV; +ZENPEP DR 10,01 EACH
[2020-08-19 15:41] LABS: Creatinine, Blood 0.85 mg/dL (0.60-1.20); Gentamicin, Trough 0.6 ug/mL (0.0-1.9)
== END 2020-08-19 16:13 | disposition home or self-care (01) ==
LOC: ATC 00:13
PROVIDERS: Family Medicine
DX: I33.0 Acute and subacute infective endocarditis (principal); B95.4 Other streptococcus as the cause of diseases classified elsewhere; J44.9 Chronic obstructive pulmonary disease, unspecified; I10 Essential (primary) hypertension; Z88.5 Allergy status to narcotic agent; Z91.018 Allergy to other foods; Z66 Do not resuscitate; Z87.891 Personal history of nicotine dependence; Z79.82 Long term (current) use of aspirin; Z79.899 Other long term (current) drug therapy; Z86.73 Personal history of transient ischemic attack (TIA), and cerebral infarction without residual deficits
CPT/HCPCS: 80170; 82565; 96365; 96367; J0696; J1580

== ENCOUNTER 2020-08-20 00:33 | Day surgery (SDC) | payer MEDICARE, OTHER | END 2020-08-20 15:35 | disposition home or self-care (01) | LOC: ATC 00:33 | DX: I33.0 Acute and subacute infective endocarditis (principal); B95.4 Other streptococcus as the cause of diseases classified elsewhere; I10 Essential (primary) hypertension; J44.9 Chronic obstructive pulmonary disease, unspecified; Z86.73 Personal history of transient ischemic attack (TIA), and cerebral infarction without residual deficits; Z79.899 Other long term (current) drug therapy; Z87.891 Personal history of nicotine dependence; I25.10 Atherosclerotic heart disease of native coronary artery without angina pectoris; Z95.5 Presence of coronary angioplasty implant and graft | CPT/HCPCS: 96365; 96368; J0696; J1580 ==

== ENCOUNTER 2020-08-21 00:48 | Day surgery (SDC) | payer MEDICARE, OTHER | END 2020-08-21 15:51 | disposition home or self-care (01) | LOC: ATC 00:48 | DX: I33.0 Acute and subacute infective endocarditis (principal); B95.4 Other streptococcus as the cause of diseases classified elsewhere; I25.10 Atherosclerotic heart disease of native coronary artery without angina pectoris; J44.9 Chronic obstructive pulmonary disease, unspecified; I25.2 Old myocardial infarction; I10 Essential (primary) hypertension; Z86.73 Personal history of transient ischemic attack (TIA), and cerebral infarction without residual deficits; Z95.5 Presence of coronary angioplasty implant and graft; Z79.82 Long term (current) use of aspirin; Z79.899 Other long term (current) drug therapy; Z87.891 Personal history of nicotine dependence | CPT/HCPCS: 96365; 96368; J0696; J1580 ==

== ENCOUNTER 2020-08-22 00:26 | Day surgery (SDC) | payer OTHER, MEDICARE ==
[2020-08-22 15:51] LABS: Gentamicin, Trough 0.7 ug/mL (0.0-1.9)
== END 2020-08-22 17:02 | disposition home or self-care (01) ==
LOC: ATC 00:26
PROVIDERS: Family Medicine
DX: I33.0 Acute and subacute infective endocarditis (principal); B95.4 Other streptococcus as the cause of diseases classified elsewhere; J44.9 Chronic obstructive pulmonary disease, unspecified; Z79.899 Other long term (current) drug therapy; I10 Essential (primary) hypertension; Z87.891 Personal history of nicotine dependence; Z20.828 Contact with and (suspected) exposure to other viral communicable diseases
CPT/HCPCS: 80170; J0696; J1580

== ENCOUNTER 2020-08-23 01:42 | Day surgery (SDC) | payer OTHER, MEDICARE | END 2020-08-23 16:07 | disposition home or self-care (01) | LOC: ATC 01:42 | DX: I33.0 Acute and subacute infective endocarditis (principal); B95.4 Other streptococcus as the cause of diseases classified elsewhere; J44.9 Chronic obstructive pulmonary disease, unspecified; I25.10 Atherosclerotic heart disease of native coronary artery without angina pectoris; I10 Essential (primary) hypertension; Z79.899 Other long term (current) drug therapy; Z95.5 Presence of coronary angioplasty implant and graft; Z86.73 Personal history of transient ischemic attack (TIA), and cerebral infarction without residual deficits; Z20.828 Contact with and (suspected) exposure to other viral communicable diseases; Z79.82 Long term (current) use of aspirin; Z87.891 Personal history of nicotine dependence | CPT/HCPCS: 96365; 96368; J0696; J1580 ==

== ENCOUNTER 2020-08-24 00:04 | Day surgery (SDC) | payer OTHER, MEDICARE | END 2020-08-24 15:59 | disposition home or self-care (01) | LOC: ATC 00:04 | DX: I33.0 Acute and subacute infective endocarditis (principal); B95.4 Other streptococcus as the cause of diseases classified elsewhere; J44.9 Chronic obstructive pulmonary disease, unspecified; I25.10 Atherosclerotic heart disease of native coronary artery without angina pectoris; I10 Essential (primary) hypertension; Z95.5 Presence of coronary angioplasty implant and graft; Z20.828 Contact with and (suspected) exposure to other viral communicable diseases; Z79.82 Long term (current) use of aspirin; Z79.899 Other long term (current) drug therapy; Z87.891 Personal history of nicotine dependence | CPT/HCPCS: J0696; J1580 ==

== ENCOUNTER 2020-08-25 00:14 | Day surgery (SDC) | payer OTHER, MEDICARE ==
[2020-08-25 15:44] LABS: Gentamicin, Trough 1.6 ug/mL (0.0-1.9)
== END 2020-08-25 15:57 | disposition home or self-care (01) ==
LOC: ATC 00:14
PROVIDERS: Family Medicine
DX: I33.0 Acute and subacute infective endocarditis (principal); B95.4 Other streptococcus as the cause of diseases classified elsewhere; J44.9 Chronic obstructive pulmonary disease, unspecified; I25.10 Atherosclerotic heart disease of native coronary artery without angina pectoris; I25.2 Old myocardial infarction; I10 Essential (primary) hypertension; Z79.82 Long term (current) use of aspirin; Z79.899 Other long term (current) drug therapy; Z86.73 Personal history of transient ischemic attack (TIA), and cerebral infarction without residual deficits; Z87.891 Personal history of nicotine dependence
CPT/HCPCS: 80170; 82565; J0696; J1580

== ENCOUNTER 2020-08-26 | Day surgery (SDC) | payer OTHER, MEDICARE ==
[2020-08-26 15:49] LABS: Gentamicin, Trough 0.5 ug/mL (0.0-1.9)
== END 2020-08-26 16:45 | disposition home or self-care (01) ==
LOC: ATC
PROVIDERS: Family Medicine
DX: I33.0 Acute and subacute infective endocarditis (principal); B95.4 Other streptococcus as the cause of diseases classified elsewhere; J44.9 Chronic obstructive pulmonary disease, unspecified; Z79.899 Other long term (current) drug therapy; I10 Essential (primary) hypertension; Z87.891 Personal history of nicotine dependence; Z86.73 Personal history of transient ischemic attack (TIA), and cerebral infarction without residual deficits; I25.10 Atherosclerotic heart disease of native coronary artery without angina pectoris; Z95.5 Presence of coronary angioplasty implant and graft; Z79.82 Long term (current) use of aspirin; Z20.828 Contact with and (suspected) exposure to other viral communicable diseases
CPT/HCPCS: 80170; 82565; 96365; 96367; J0696; J1580

== ENCOUNTER 2020-08-27 00:26 | Day surgery (SDC) | payer OTHER, MEDICARE | END 2020-08-27 15:58 | disposition home or self-care (01) | LOC: ATC 00:26 | DX: I33.0 Acute and subacute infective endocarditis (principal); B95.4 Other streptococcus as the cause of diseases classified elsewhere; J44.9 Chronic obstructive pulmonary disease, unspecified; I25.10 Atherosclerotic heart disease of native coronary artery without angina pectoris; I10 Essential (primary) hypertension; Z87.891 Personal history of nicotine dependence; Z86.73 Personal history of transient ischemic attack (TIA), and cerebral infarction without residual deficits; Z79.899 Other long term (current) drug therapy; Z95.5 Presence of coronary angioplasty implant and graft | CPT/HCPCS: 96365; J0696 ==

== ENCOUNTER 2020-08-29 00:18 | Day surgery (SDC) | payer OTHER, MEDICARE | END 2020-08-29 15:31 | disposition home or self-care (01) | LOC: ATC 00:18 | DX: I33.0 Acute and subacute infective endocarditis (principal); B95.4 Other streptococcus as the cause of diseases classified elsewhere; J44.9 Chronic obstructive pulmonary disease, unspecified; Z86.73 Personal history of transient ischemic attack (TIA), and cerebral infarction without residual deficits; I10 Essential (primary) hypertension; Z79.899 Other long term (current) drug therapy; Z87.891 Personal history of nicotine dependence; I25.10 Atherosclerotic heart disease of native coronary artery without angina pectoris; I25.2 Old myocardial infarction ==

== ENCOUNTER → 2020-09-11 | Outpatient (CLI) | payer OTHER, MEDICARE ==
[2020-09-11 16:44] LABS: BASOPHILS ABSOLUTE AUTO 0.03 K/mm3 (0.00-0.23); BASOPHILS PERCENT AUTO 0 % (0-2); EOSINOPHILS ABSOLUTE AUTO 0.02 K/mm3 (0.00-0.68); EOSINOPHILS PERCENT AUTO 0 % (0-6); Hematocrit 38.7 % (37.0-53.0); Hemoglobin 12.3 g/dL (13.5-17.5); IMMATURE GRAN ABSOLUTE AUTO 0.08 K/mm3 (0.00-0.10); IMMATURE GRAN PERCENT AUTO 1 % (0-1); LYMPHOCYTES ABSOLUTE AUTO 1.26 K/mm3 (0.84-5.20); LYMPHOCYTES PERCENT AUTO 11 % (21-46); MONOCYTES ABSOLUTE AUTO 1.13 K/mm3 (0.16-1.47); MONOCYTES PERCENT AUTO 10 % (4-13); Mean Corpuscular HGB 29.6 pg (26.0-34.0); Mean Corpuscular HGB Conc 31.8 g/dL (31.5-36.5); Mean Corpuscular Volume 93 fL (80-100); NEUTROPHILS ABSOLUTE AUTO 8.69 K/mm3 (1.96-9.15); NEUTROPHILS PERCENT AUTO 78 % (41-73); Platelet Count 167 K/mm3 (150-400); RDW Coefficient Variation 13.7 % (11.7-14.2); RDW Standard Deviation 46.5 fL (35.1-46.3); Red Blood Cell Count 4.16 M/mm3 (4.30-5.90); White Blood Cell Count 11.21 K/mm3 (4.00-11.30)
[2020-09-11 16:59] LABS: Albumin, Blood 2.4 g/dL (3.4-5.0); Albumin/Globulin Ratio 0.7 (0.8-1.8); Bilirubin, Total 0.7 mg/dL (0.1-1.0); Bun/Creatinine Ratio 17.7 (12.0-20.0); Calcium, Blood 7.1 mg/dL (8.5-10.1); Creatinine, Blood 1.64 mg/dL (0.60-1.20); Globulin, Blood 3.3 g/dL (2.2-4.0); Potassium, Blood 2.6 mmol/L (3.5-5.5); Total Protein, Blood 5.7 g/dL (6.4-8.2)
[2020-09-11 17:09] LABS: Mean Platelet Volume 13.3 fL (9.1-12.4)
== END | disposition home or self-care (01) ==
LOC: LAB SHORT 15:01 → LAB HH 15:01
PROVIDERS: Internal Medicine Infectious Disease
DX: I33.0 Acute and subacute infective endocarditis (principal); I34.0 Nonrheumatic mitral (valve) insufficiency; I38 Endocarditis, valve unspecified; B95.4 Other streptococcus as the cause of diseases classified elsewhere
CPT/HCPCS: 80053; 85025

== ENCOUNTER 2020-10-18 20:02 | Emergency (ER) | payer OTHER, MEDICARE ==
[~2020-10-18] VITALS: Ht 180.3 cm; Wt 72.6 kg
[2020-10-18 21:01] LABS: Magnesium, Blood 2.3 mg/dL (1.6-2.4); Troponin I <0.015 ng/mL (0.000-0.040)
[2020-10-18 21:02] LABS: Alanine Aminotransfer (ALT/SGP 23 U/L (12-78); Albumin/Globulin Ratio 0.9 (0.8-1.8); Alk Phos 187 U/L (50-136); Anion Gap 5 mmol/L (6-16); Aspartate Aminotrans (AST/SGOT 15 U/L (12-37); Blood Urea Nitrogen 19 mg/dL (8-24); Bun/Creatinine Ratio 14.5 (12.0-20.0); CO2, Blood 32 mmol/L (21-32); Calcium, Blood 8.7 mg/dL (8.5-10.1); Chloride, Blood 108 mmol/L (98-108); Creatinine, Blood 1.31 mg/dL (0.60-1.20); Globulin, Blood 3.3 g/dL (2.2-4.0); Glomerular Filtration Rate 55 (60-); Glucose, Blood 203 mg/dL (70-99); Potassium, Blood 3.5 mmol/L (3.5-5.5); Sodium, Blood 145 mmol/L (136-145); Total Protein, Blood 6.3 g/dL (6.4-8.2)
[2020-10-18 21:13] LABS: PO2 Arterial 226 mmHg (80-100); pH Blood Arterial 7.38 (7.35-7.45)
[2020-10-18 21:15] LABS: BASOPHILS ABSOLUTE AUTO 0.02 K/mm3 (0.00-0.23); BASOPHILS PERCENT AUTO 0 % (0-2); EOSINOPHILS ABSOLUTE AUTO 0.09 K/mm3 (0.00-0.68); EOSINOPHILS PERCENT AUTO 1 % (0-6); Hematocrit 37.4 % (37.0-53.0); Hemoglobin 11.4 g/dL (13.5-17.5); IMMATURE GRAN ABSOLUTE AUTO 0.04 K/mm3 (0.00-0.10); IMMATURE GRAN PERCENT AUTO 1 % (0-1); LYMPHOCYTES PERCENT AUTO 17 % (21-46); MONOCYTES ABSOLUTE AUTO 1.11 K/mm3 (0.16-1.47); MONOCYTES PERCENT AUTO 14 % (4-13); Mean Corpuscular HGB 30.4 pg (26.0-34.0); Mean Corpuscular HGB Conc 30.5 g/dL (31.5-36.5); Mean Corpuscular Volume 100 fL (80-100); NEUTROPHILS PERCENT AUTO 67 % (41-73); Platelet Count 150 K/mm3 (150-400); RDW Coefficient Variation 17.5 % (11.7-14.2); RDW Standard Deviation 63.8 fL (35.1-46.3); Red Blood Cell Count 3.75 M/mm3 (4.30-5.90); White Blood Cell Count 8.16 K/mm3 (4.00-11.30)
[2020-10-18 22:17] LABS: Influenza A, PCR Negative (NEGATIVE); Influenza B, PCR Negative (NEGATIVE); Resp Syncytial Virus, PCR Negative (NEGATIVE); SARS-Cov-2 (COVID-19) PCR, MMC Negative (NEGATIVE)
== END 2020-10-18 23:31 | disposition home or self-care (01) ==
LOC: ER 20:02
PROVIDERS: Emergency Medicine
DX: I50.9 Heart failure, unspecified (principal); I48.91 Unspecified atrial fibrillation; Z95.5 Presence of coronary angioplasty implant and graft; Z87.891 Personal history of nicotine dependence; Z79.82 Long term (current) use of aspirin; Z79.899 Other long term (current) drug therapy; Z86.73 Personal history of transient ischemic attack (TIA), and cerebral infarction without residual deficits; Z88.8 Allergy status to other drugs, medicaments and biological substances; Z91.018 Allergy to other foods; Z20.828 Contact with and (suspected) exposure to other viral communicable diseases
CPT/HCPCS: 0241U; 36415; 36600; 71045; 80053; 82803; 83735; 83880; 84145; 84484; 85025; 93005; 93010; 96374; 99285-25; J1940

== ENCOUNTER 2021-01-03 13:10 | Emergency (ER) | payer OTHER, MEDICARE ==
[~2021-01-03] VITALS: Ht 170.2 cm; Wt 74.8 kg
[2021-01-03 13:57] LABS: BASOPHILS ABSOLUTE AUTO 0.04 K/mm3 (0.00-0.23); BASOPHILS PERCENT AUTO 1 % (0-2); EOSINOPHILS PERCENT AUTO 7 % (0-6); Hematocrit 41.3 % (37.0-53.0); Hemoglobin 12.9 g/dL (13.5-17.5); IMMATURE GRAN ABSOLUTE AUTO 0.04 K/mm3 (0.00-0.10); IMMATURE GRAN PERCENT AUTO 1 % (0-1); LYMPHOCYTES PERCENT AUTO 15 % (21-46); MONOCYTES ABSOLUTE AUTO 1.12 K/mm3 (0.16-1.47); MONOCYTES PERCENT AUTO 14 % (4-13); Mean Corpuscular HGB 30.1 pg (26.0-34.0); Mean Corpuscular HGB Conc 31.2 g/dL (31.5-36.5); Mean Corpuscular Volume 97 fL (80-100); Mean Platelet Volume 12.8 fL (9.1-12.4); NEUTROPHILS ABSOLUTE AUTO 5.14 K/mm3 (1.96-9.15); NEUTROPHILS PERCENT AUTO 63 % (41-73); Platelet Count 175 K/mm3 (150-400); RDW Coefficient Variation 13.2 % (11.7-14.2); RDW Standard Deviation 46.8 fL (35.1-46.3); Red Blood Cell Count 4.28 M/mm3 (4.30-5.90); White Blood Cell Count 8.14 K/mm3 (4.00-11.30)
[2021-01-03 14:11] LABS: Alanine Aminotransfer (ALT/SGP 17 U/L (12-78); Albumin, Blood 2.4 g/dL (3.4-5.0); Albumin/Globulin Ratio 0.7 (0.8-1.8); Alk Phos 198 U/L (50-136); Anion Gap 10 mmol/L (6-16); Aspartate Aminotrans (AST/SGOT 17 U/L (12-37); Bilirubin, Total 1.1 mg/dL (0.1-1.0); Blood Urea Nitrogen 16 mg/dL (8-24); Bun/Creatinine Ratio 14.2 (12.0-20.0); CO2, Blood 26 mmol/L (21-32); Calcium, Blood 8.3 mg/dL (8.5-10.1); Chloride, Blood 102 mmol/L (98-108); Creatinine, Blood 1.13 mg/dL (0.60-1.20); Globulin, Blood 3.6 g/dL (2.2-4.0); Glomerular Filtration Rate >60 (60-); Glucose, Blood 259 mg/dL (70-99); Potassium, Blood 3.7 mmol/L (3.5-5.5); Sodium, Blood 138 mmol/L (136-145)
[2021-01-03 15:21] LABS: Source, Urine Clean Catch
[2021-01-03 15:35] LABS: Appearance, Urine Bloody (Clear); Bilirubin, Urine Neg (Neg); Blood, Urine 5+ (Neg); Color, Urine Red (P-Yellow); Glucose Qualitative, Urine 2+ (Neg); Ketones, Urine 1+ (Neg); Leukocyte Esterase, Urine 3+ (Neg); Nitrite, Urine Neg (Neg); Protein, Urine 4+ (Neg); Urobilinogen, Urine NORM (Normal)
[2021-01-03 16:08] LABS: White Blood Cells, Urine 50-100 /hpf (0-5)
[2021-01-03 16:09] LABS: Bacteria Many /hpf; Red Blood Cells, Urine TNTC /hpf (0-2); Squamous Epithelial Cells Few /hpf (Few)
[2021-01-03] MEDS ORDERED: CEFP200 PO (16:27)
== END 2021-01-03 17:04 | disposition home or self-care (01) ==
LOC: ER 13:10
PROVIDERS: Emergency Medicine
DX: N39.0 Urinary tract infection, site not specified (principal); R31.9 Hematuria, unspecified; I25.10 Atherosclerotic heart disease of native coronary artery without angina pectoris; I25.2 Old myocardial infarction; I48.91 Unspecified atrial fibrillation; I11.0 Hypertensive heart disease with heart failure; I50.9 Heart failure, unspecified; E78.5 Hyperlipidemia, unspecified; Z88.5 Allergy status to narcotic agent; Z79.899 Other long term (current) drug therapy; Z79.01 Long term (current) use of anticoagulants; Z79.82 Long term (current) use of aspirin; Z91.018 Allergy to other foods; Z79.84 Long term (current) use of oral hypoglycemic drugs; Z86.73 Personal history of transient ischemic attack (TIA), and cerebral infarction without residual deficits; Z87.891 Personal history of nicotine dependence; Z88.8 Allergy status to other drugs, medicaments and biological substances
CPT/HCPCS: 36415; 76770; 80053; 81001; 85025; 86900; 86901; 87077; 87086; 87186; 99283-25; A9270

== ENCOUNTER 2021-01-16 15:41 | Emergency (ER) | payer OTHER, MEDICARE ==
[~2021-01-16] VITALS: Ht 175.3 cm; Wt 77.1 kg
[2021-01-16 16:19] LABS: BASOPHILS ABSOLUTE AUTO 0.04 K/mm3 (0.00-0.23); BASOPHILS PERCENT AUTO 1 % (0-2); EOSINOPHILS ABSOLUTE AUTO 0.35 K/mm3 (0.00-0.68); EOSINOPHILS PERCENT AUTO 4 % (0-6); Hematocrit 36.3 % (37.0-53.0); Hemoglobin 11.5 g/dL (13.5-17.5); IMMATURE GRAN ABSOLUTE AUTO 0.05 K/mm3 (0.00-0.10); IMMATURE GRAN PERCENT AUTO 1 % (0-1); LYMPHOCYTES ABSOLUTE AUTO 1.19 K/mm3 (0.84-5.20); LYMPHOCYTES PERCENT AUTO 14 % (21-46); MONOCYTES PERCENT AUTO 12 % (4-13); Mean Corpuscular HGB 30.2 pg (26.0-34.0); Mean Corpuscular HGB Conc 31.7 g/dL (31.5-36.5); Mean Corpuscular Volume 95 fL (80-100); Mean Platelet Volume 12.2 fL (9.1-12.4); NEUTROPHILS ABSOLUTE AUTO 5.76 K/mm3 (1.96-9.15); NEUTROPHILS PERCENT AUTO 69 % (41-73); Platelet Count 208 K/mm3 (150-400); RDW Coefficient Variation 13.6 % (11.7-14.2); RDW Standard Deviation 47.2 fL (35.1-46.3); Red Blood Cell Count 3.81 M/mm3 (4.30-5.90); White Blood Cell Count 8.39 K/mm3 (4.00-11.30)
[2021-01-16 16:40] LABS: Alanine Aminotransfer (ALT/SGP 19 U/L (12-78); Albumin, Blood 2.3 g/dL (3.4-5.0); Albumin/Globulin Ratio 0.7 (0.8-1.8); Alk Phos 150 U/L (50-136); Anion Gap 7 mmol/L (6-16); Aspartate Aminotrans (AST/SGOT 19 U/L (12-37); Bilirubin, Total 0.7 mg/dL (0.1-1.0); Blood Urea Nitrogen 19 mg/dL (8-24); Bun/Creatinine Ratio 14.5 (12.0-20.0); CO2, Blood 27 mmol/L (21-32); Calcium, Blood 8.1 mg/dL (8.5-10.1); Chloride, Blood 106 mmol/L (98-108); Creatinine, Blood 1.31 mg/dL (0.60-1.20); Globulin, Blood 3.3 g/dL (2.2-4.0); Glomerular Filtration Rate 55 (60-); Glucose, Blood 227 mg/dL (70-99); Potassium, Blood 3.9 mmol/L (3.5-5.5); Sodium, Blood 140 mmol/L (136-145); Total Protein, Blood 5.6 g/dL (6.4-8.2); Troponin I <0.015 ng/mL (0.000-0.040)
== END 2021-01-16 18:30 | disposition home or self-care (01) ==
LOC: ER 15:41
PROVIDERS: Physician Assistant
DX: I95.9 Hypotension, unspecified (principal); I11.0 Hypertensive heart disease with heart failure; I50.9 Heart failure, unspecified; I48.91 Unspecified atrial fibrillation; I25.10 Atherosclerotic heart disease of native coronary artery without angina pectoris; I25.2 Old myocardial infarction; J44.9 Chronic obstructive pulmonary disease, unspecified; E78.5 Hyperlipidemia, unspecified; Z79.82 Long term (current) use of aspirin; Z79.84 Long term (current) use of oral hypoglycemic drugs; Z79.899 Other long term (current) drug therapy; Z88.8 Allergy status to other drugs, medicaments and biological substances; Z91.018 Allergy to other foods; Z79.01 Long term (current) use of anticoagulants; Z86.73 Personal history of transient ischemic attack (TIA), and cerebral infarction without residual deficits; Z87.891 Personal history of nicotine dependence
CPT/HCPCS: 36415; 71046; 80053; 83880; 84484; 85025; 93005; 93010; 96360; 99285-25; J7030

== ENCOUNTER 2022-05-27 11:15 | Day surgery (SDC) | payer OTHER ==
[~2022-05-27] VITALS: Ht 172.7 cm; Wt 69.8 kg
[~2022-05-27 11:15] MED LIST changes: +EUTHYROX50 MCG PO; +METOPROLOL SUCC25 MG PO; +POTA10T PO
--- NOTE | 2022-05-27 12:16 | NUR ---
05/27/22 1216 Madai Abarca AT 1135 [address] AT 1137
== END 2022-05-27 13:21 | disposition home or self-care (01) ==
LOC: ORSCSDS 11:15
PROVIDERS: Ophthalmology
PROC: 08RJ3JZ Replacement of Right Lens with Synthetic Substitute, Percutaneous Approach (ICD-10-PCS; principal; 2022-05-27 12:30)
DX: H25.11 Age-related nuclear cataract, right eye (principal); H52.201 Unspecified astigmatism, right eye; I10 Essential (primary) hypertension; K21.9 Gastro-esophageal reflux disease without esophagitis; E11.9 Type 2 diabetes mellitus without complications; E03.9 Hypothyroidism, unspecified; H40.9 Unspecified glaucoma; I25.2 Old myocardial infarction; Z86.73 Personal history of transient ischemic attack (TIA), and cerebral infarction without residual deficits; Z79.82 Long term (current) use of aspirin; Z79.84 Long term (current) use of oral hypoglycemic drugs; Z79.899 Other long term (current) drug therapy
CPT/HCPCS: 82947; J2001; J2250; J3010; J3301; J7040; V2632

== ENCOUNTER 2022-07-13 07:35 | Day surgery (SDC) | payer OTHER ==
[~2022-07-13] VITALS: Ht 172.7 cm; Wt 69.7 kg
[2022-07-13] MEDS ORDERED: FINA5 (08:08)
[2022-07-13] MEDS ORDERED: ATOR10 (08:10)
--- NOTE | 2022-07-13 08:26 | NUR ---
07/13/22 0826 Shae Walsh AT [address] AT 0810
== END 2022-07-13 10:20 | disposition home or self-care (01) ==
LOC: ORSCSDS 07:35
PROVIDERS: Ophthalmology
PROC: 08RK3JZ Replacement of Left Lens with Synthetic Substitute, Percutaneous Approach (ICD-10-PCS; principal; 2022-07-13 09:00)
DX: H25.12 Age-related nuclear cataract, left eye (principal); H52.202 Unspecified astigmatism, left eye; Z96.1 Presence of intraocular lens; H35.30 Unspecified macular degeneration; H40.9 Unspecified glaucoma; E11.9 Type 2 diabetes mellitus without complications; I48.91 Unspecified atrial fibrillation; I25.2 Old myocardial infarction; K21.9 Gastro-esophageal reflux disease without esophagitis; Z86.73 Personal history of transient ischemic attack (TIA), and cerebral infarction without residual deficits; Z79.01 Long term (current) use of anticoagulants; Z79.82 Long term (current) use of aspirin; Z79.899 Other long term (current) drug therapy; Z79.84 Long term (current) use of oral hypoglycemic drugs
CPT/HCPCS: 82947; J2001; J2250; J3010; J3301; J7040; V2632

== ENCOUNTER 2023-02-22 12:47 | Observation (INO) | payer OTHER ==
[~2023-02-22] VITALS: Ht 182.9 cm; Wt 67.4 kg
[~2023-02-22 12:47] MED LIST changes: +ATOR10 PO; +CEPH500 PO; +DIGOX125 MC1 PO; +FINA5; +LEVO750 PO
[2023-02-22 13:24] LABS: BASOPHILS ABSOLUTE AUTO 0.05 K/mm3 (0.00-0.23); BASOPHILS PERCENT AUTO 0 % (0-2); EOSINOPHILS ABSOLUTE AUTO 0.02 K/mm3 (0.00-0.68); EOSINOPHILS PERCENT AUTO 0 % (0-6); Hematocrit 23.6 % (37.0-53.0); Hemoglobin 7.6 g/dL (13.5-17.5); IMMATURE GRAN ABSOLUTE AUTO 0.69 K/mm3 (0.00-0.10); IMMATURE GRAN PERCENT AUTO 5 % (0-1); LYMPHOCYTES ABSOLUTE AUTO 2.47 K/mm3 (0.84-5.20); LYMPHOCYTES PERCENT AUTO 18 % (21-46); MONOCYTES ABSOLUTE AUTO 1.79 K/mm3 (0.16-1.47); MONOCYTES PERCENT AUTO 13 % (4-13); Mean Corpuscular HGB 29.7 pg (26.0-34.0); Mean Corpuscular HGB Conc 32.2 g/dL (31.5-36.5); Mean Corpuscular Volume 92 fL (80-100); Mean Platelet Volume 12.6 fL (9.1-12.4); NEUTROPHILS ABSOLUTE AUTO 8.88 K/mm3 (1.96-9.15); NEUTROPHILS PERCENT AUTO 64 % (41-73); Platelet Count 211 K/mm3 (150-400); RDW Coefficient Variation 14.1 % (11.7-14.2); RDW Standard Deviation 47.4 fL (35.1-46.3); Red Blood Cell Count 2.56 M/mm3 (4.30-5.90)
[2023-02-22 13:43] LABS: Albumin, Blood 1.6 g/dL (3.4-5.0); Albumin/Globulin Ratio 0.5 (0.8-1.8); Bilirubin, Total 0.5 mg/dL (0.1-1.0); Bun/Creatinine Ratio 49.2 (12.0-20.0); Calcium, Blood 7.8 mg/dL (8.5-10.1); Creatinine, Blood 1.2 mg/dL (0.60-1.20); Globulin, Blood 3.4 g/dL (2.2-4.0); Potassium, Blood 4.8 mmol/L (3.5-5.5)
--- NOTE | 2023-02-22 15:47 | NUR ---
Pt is an 88 y.o. man with cardiac history including CHF, HTN, severe mitral regurgitation with mitral valve prolapse, endocarditis, coronary stenting. He is currently taking blood thinner, he states he's taking this for a-fib. He was brought in by ambulance after increased weakness resulted in multiple falls. Lab show anemia and he has an active GI bleed. He states he is "ready to go", and he expanded on the statement by answering "Yes" to returning home to be comfortable. He states he understands what hospice is, and he is not willing to continue with any kind of treatments or procedures. His daughter Dominga is at bedside in the ED room, states he has been having an increase in health issues of late, and has always valued quality of life, which is "greatly and quickly diminishing". Vishnu does appear appropriate for hospice given his current health status, and family state no preference. I was informed by dialysis patient care technician that [facility] has an opening tomorrow morning, and family is agreeable with this plan, as they state they need a day to prepare, and this will work well for all involved. Palliative Care will remain available.
--- NOTE | 2023-02-22 19:25 | NUR ---
PT ARRIVED ON MEDICAL FLOOR FROM ED. PT ABLE TO TRANSFER FROM [facility] TO BED WITH 2 PERSON ASSIST. ATTENDS CHANGED. PT OREINTED TO ROOM. FAMILY AT BEDSIDE. WARM BLANKET AND WATER AND SNACKS GIVEN. REPORT GIVEN TO [employer] WORKER NURSE.
--- NOTE | 2023-02-23 04:35 | NUR ---
SHIFT SUMMARY PT A&O X 2-3, PERSON, PLACE, SITUATION. FORGETFUL WITH HX OF DEMENTIA. SEVERAL LOOSE BLACK STOOLS THIS SHIFT IN ATTENDS. 2 PERSON ASSIST. JUST HAD SOME N/V. CALLED TO REQUEST MED FOR THIS. NEW ORDER OBTAINED. WILL GIVE WHEN AVAILABLE.
--- NOTE | 2023-02-23 11:56 | NUR ---
Spiritual Care Visit. Pt. is on comfort care and mostly resting. Pts. fiance' and daughters are present. Faciliate a life review with the family, and rapport is established. Family displayed evidence of normative grief, and have been holding weaver at Pts. bedside. Prayed for Pt. and family. Family verbalized gratitude for the spiritual care visit. Asked the nursing staff to notify this aerospace stress engineer if the Pt. began to transition.
--- NOTE | 2023-02-23 13:14 | NUR ---
CARE CONFERENCE: Met with pt's daughter Dominga this am. Pt appeared to be resting comfortably at the time. Dominga states concern over transporting the patient, and concerns about keeping the pt clean related to the active GI bleed. According to Dominga and bedside RN, pt was awake the majority of last night. He denied pain, SOB or anxiety. However, his skin is very pale, and he does appear frail, and there is also concern among staff that he may be imminent. marketing information manager in agreement, and s/o request home hospice be cancelled. marketing information manager will check with [facility] for availability, and if pt appears stable enough, may transfer to [facility], but will not be returning home.
--- NOTE | 2023-02-23 18:41 | NUR ---
STUDENT PRACTICAL NURSE PATIENT ON COMFORT CARE. GI BLEED, 2 BLOODY BOWEL MOEMENTS THIS SHIFT. COMPLAINS OF PAIN, GIEN ROXINOL 5MG. FAMILY VISITING MOST THE DAY.
--- NOTE | 2023-02-24 03:29 | NUR ---
BUSINESS ADMINISTRATION PROGRAM CHAIR SUMMARY NO ACUTE CHANGES THIS SHIFT. NO SIGNS OF PAIN OR AIR HUNGER. Q2-HOUR REPOSITIONING. PATIENT FAMILY AT BEDSIDE. BED LOW AND LOCKED. THIS RN WILL CONTINUE TO MONITOR.
--- NOTE | 2023-02-24 09:53 | NUR ---
AM RN NOTE MR MAR IS AWAKE, NON VERBAL WITH ME, DAUGHTERS AT BEDSIDE SAID HE SAID A FEW WORDS TO THEM. HE SHOOK HIS HEAD NO TO INDICATE HE HAS NO PAIN. HE SAT UP AND TOOK A FEW BITES FOR BREAKFAST AND SWALLOWED HIS MEDICATIONS WELL. 1 PERSON ASSIST TO TURN AND REPOSITION IN BED. INCONT OF URINE. NO BM THIS SHIFT.
--- NOTE | 2023-02-24 11:18 | NUR ---
Comfort Care Visit Pt resting in bed with his eyes closed. Pt will briefly wake to gentle verbal stimuli but does not engage in verbal conversation much. Family at bedside. Family reports being in agreement with Pt coming home with hospice. They inquire about considering rectal tube to help manage the melana. Continued therapeutic listening and answered questions. Pt appears comfortable with no S/S of distress at this time. Spoke with Dr Carrera and discussed case. Dr Carrera is agreeable to rectal tube if Pt start having stool again. Spoke with Renetta at [facility]. [facility] can admit Pt onto services tomorrow. Spoke with RN Zaki Yadav and discussed case. Vicenta will call hospice and set up D/C plan. Spoke with Pt's primary RN Leydi and discussed case. Palliative Care will remain available
--- NOTE | 2023-02-24 11:55 | NUR ---
Spiritual Care Visit. Pt. is comfort care but is awake and alert and welcomes my visit. Family members are present. Pt. displays evidence of engagement that were not as visible yesterday. Family introductions are made. Rapport is re-established. Family visitors were transistioning, so we prayed for bothe Pt. and family. Family verblized gratitude for the spiritual care visit. Will remain available to Pt. and family.
--- NOTE | 2023-02-24 16:57 | NUR ---
SHIFT SUMMARY MR MAR HAS BEEN SLEEPY FOR MOST OF THE SHIFT, AROUSES TO VOICE AND ABLE TO SAY SOME SHORT ANSWERS TO QUESTIONS. C/O BACK PAIN EARLIER TODAY - ROXINOL SEEMED TO HELP AND HE HAS DECLINED FURTHER DOSES. NO MELENA, NO BM THIS SHIFT. INCONTINENT OF URINE. POOR PO INTAKE. PLAN FOR HOME WITH HOSPICE TOMORROW. GOOD FAMILY SUPPORT AT BEDSIDE THROUGHOUT THE DAY. BED LOW, CALL LIGHT IN REACH.
--- NOTE | 2023-02-25 05:57 | NUR ---
PT ASLEEP MOST OF THE NIGHT. FAMILY AT BEDSIDE GIVING PT SIPS OF LIQS AND BITES OF FOOD PT WOULD TAKE. PT MEDICATED FOR PAIN AND THEN FELL BACK TO SLEEP. CALL LIGHT IN REACH.
[2023-02-25] MEDS ORDERED: MORP20L SL (10:06)
[2023-02-25] MEDS ORDERED: Ativan1 MG PO (10:06)
--- NOTE | 2023-02-25 11:40 | NUR ---
Comfort Care Visit Pt awake and resting in bed. Pt denies pain, anxiety, and dyspnea at this time. Family at bedside. Offered therapeutic listening and answered questions. Pt and family agreeable with D/C plan today with [facility]. No concerns reported at this time. Palliative Care will remain available
--- NOTE | 2023-02-25 13:31 | NUR ---
Patient alert/oriented to self. Resting comfortably in bed. Incontinent of B/B. Patient discharged home on hospice. Transport arrived at 1300. Patient left unit at 1315.
== END 2023-02-25 13:30 | disposition hospice, home (50) ==
LOC: ER 12:47 → MEDS 15:43
PROVIDERS: Emergency Medicine; ADMIT Hospitalist
DX: K92.1 Melena (principal); D62 Acute posthemorrhagic anemia; Z51.5 Encounter for palliative care; I48.91 Unspecified atrial fibrillation; C25.9 Malignant neoplasm of pancreas, unspecified; I34.0 Nonrheumatic mitral (valve) insufficiency; E11.9 Type 2 diabetes mellitus without complications; Z66 Do not resuscitate; Z79.01 Long term (current) use of anticoagulants; J44.9 Chronic obstructive pulmonary disease, unspecified; I10 Essential (primary) hypertension; Z87.891 Personal history of nicotine dependence; I25.2 Old myocardial infarction; E87.1 Hypo-osmolality and hyponatremia; N40.0 Benign prostatic hyperplasia without lower urinary tract symptoms; Z95.5 Presence of coronary angioplasty implant and graft; E78.5 Hyperlipidemia, unspecified
CPT/HCPCS: 80053; 85025; 93005; 93010; 96361; 96365; 96376; 99285-25; A9270; G0378; J7030